=== PATIENT | male | born 1945 | race Caucasian/White ===

== ENCOUNTER 2016-08-16 22:58 | Inpatient (IN) | payer MEDICARE ==
[2016-08-16] MEDS ORDERED: HEPARIN SODIUM,PORCINE 5,000 UNIT/ML 1 ML VIAL IV STA (23:10)
[2016-08-16] MEDS ORDERED: DILTIAZEM 125 MG in SODIUM CHLORIDE 0.9% 100 ML IV ONE (23:10)
[2016-08-16] MEDS ORDERED: HEPARIN SODIUM,PORCINE/D5W PMX 25,000 UNIT in DEXTROSE/WATER 1 500ML.BAG IV STA (23:10)
--- NOTE | 2016-08-16 23:13 | ED ---
Chest Pain HPI - General Chief Complaint: Chest Pain Stated Complaint: chest pains Time Seen by Provider: 08/16/16 23:05 Source: patient, EMS Mode of arrival: EMS - History of Present Illness Initial Comments: This is a 71-year-old male with a history of hypertension presents emergency department for an episode of lightheadedness chest pain. He states that around 9:30 PM he was sitting in his chair when all of a sudden he got very lightheaded and had some chest pressure associated with some diaphoresis. He states that he was very concerned and his called 911 who advised him to take an aspirin. This completely resolved his symptoms. When EMS arrived they noted that the patient was in atrial fibrillation with RVR. The patient does not history of this. Patient does not have a history of SD in the past. No recent travel. No shortness of breath. He states that right now he feels completely back to normal. - Related Data Allergies Allergy/AdvReac Type Severity Reaction Status Date / Time No Known Allergies Allergy Verified 08/16/16 23:02 Review of Systems ROS Statement: Those systems with pertinent positive or pertinent negative responses have been documented in the HPI. ROS Other: All systems not noted in ROS Statement are negative. EKG Findings - EKG Comments: EKG Findings:: EKG showing atrial fibrillation with a rate of 110. There are ST segment depressions in the lateral and inferior leads with T-wave inversion. The patient has what appears to be an incomplete right bundle-branch block as well. QTC is 357. Other intervals are normal. No ectopy. Past Medical History Past Medical History: Hypertension History of Any Multi-Drug Resistant Organisms: None Reported Additional Past Surgical History / Comment(s): knee and hip surgery Past Psychological History: No Psychological Hx Reported Smoking Status: Never smoker Past Alcohol Use History: Rare Past Drug Use History: None Reported General Exam - General Exam Comments Initial Comments: Constitutional: Awake alert Appears comfortable Head: Normocephalic atraumatic Eyes: no conjunctival injection No scleral icterus EOMI Neck: No JVD Supple Heart: Tachycardic with an irregularly irregular rhythm normal S1-S2 no murmurs Lungs: Clear to auscultation bilaterally No wheezing No rales Abdomen: Soft nondistended nontender Extremities: Non edematous DP pulses intact Radial pulses intact Neuro: A&Ox3 No focal neurologic deficits Psych: Appropriate mood and affect Course Vital Signs 08/16/16 08/17/16 22:59 00:03 Temperature 98.0 F Pulse Rate 90 112 H Respiratory 18 18 Rate Blood Pressure 156/78 116/68 O2 Sat by Pulse 96 98 Oximetry Chest Pain MDM - MDM This is a 71-year-old male who presents emergency department for chest pain and new onset A. fib. The patient had an elevated troponin of 0.10. He did have some ST depressions eyes EKG as well. With his symptoms of concern for an STEMI. His family brought in on heparin and Cardizem. Heart rate is in the 80s to 90s currently. He has no chest pain. Patient will be admitted to Dr. Kennedy. Dr. Chin was placed on consult. Disposition Clinical Impression: NSTEMI (non-ST elevated myocardial infarction), Atrial fibrillation with RVR Disposition: ADMITTED IP TO THIS HOSP Condition: Stable
[2016-08-16 23:30] LABS: Basophils % (A) 0 %; CHCM 34.1; Eosinophils # (A) 0.2 k/uL (0-0.7); Eosinophils % (A) 2 %; HCT 44.8 % (39.0-53.0); HDW 3.36; HGB 14.7 gm/dL (13.0-17.5); Luc # (Auto) 0.19; Luc % (Auto) 2; Lymphocytes # (A) 1.7 k/uL (1.0-4.8); Lymphocytes % (A) 17 %; MCHC 32.8 g/dL (31.0-37.0); MCV 85.3 fL (80.0-100.0); Mean Platelet Volume 6.5; Monocytes # (A) 0.5 k/uL (0-1.0); Monocytes % (A) 5 %; Neutrophils # (A) 7.1 k/uL (1.3-7.7); Neutrophils % (A) 73 %; RBC 5.25 m/uL (4.30-5.90); RDW 14.7 % (11.5-15.5); WBC 9.7 k/uL (3.8-10.6); WBC (Perox) 9.55
[2016-08-16 23:39] LABS: ALT 45 U/L (21-72); AST 63 U/L (17-59); Alkaline Phosphatase 82 U/L (38-126); Anion Gap 16 mmol/L; Blood Urea Nitrogen 21 mg/dL (9-20); Calcium 10.1 mg/dL (8.4-10.2); Carbon Dioxide 23 mmol/L (22-30); Chloride 105 mmol/L (98-107); Glucose 132 mg/dL (74-99); Magnesium 1.8 mg/dL (1.6-2.3); Non-African American GFR(MDRD) >60 (>60 ml/min/1.73 sqM); Sodium 144 mmol/L (137-145); Total Bilirubin 0.5 mg/dL (0.2-1.3); Total Protein 7.9 g/dL (6.3-8.2)
[2016-08-16 23:40] LABS: Partial Thromboplastin Time 23.9 sec (22.0-30.0); Prothrombin Time 10.3 sec (9.0-12.0)
[2016-08-17 00:06] LABS: Creatine Kinase MB 1.4 ng/mL (0.0-2.4); Troponin I 0.108 ng/mL (0.000-0.034)
[2016-08-17] MEDS ORDERED: NITROGLYCERIN SL TABS 0.4 MG TAB SUBLINGUAL PRN ×2 (00:16→08:18)
--- NOTE | 2016-08-17 00:38 | XR ---
EXAM: XR Chest, 2 Views. CLINICAL HISTORY: Reason: Chest Pain TECHNIQUE: Frontal and lateral views of the chest. COMPARISON: None available FINDINGS: Lungs: Lungs are clear. Pleural space: No evidence of pleural effusion. No pneumothorax. Heart: Heart size is mildly enlarged. The pulmonary vasculature is within normal limits. Mediastinum: Rightward deviation of the upper trachea may be related to vascular tortuosity, but cannot exclude mediastinal or thyroid mass. Bones/joints: Unremarkable. IMPRESSION: Mild cardiomegaly. No mammographic evidence of acute cardiopulmonary disease. Rightward deviation of upper trachea as discussed in body of report. CT chest would be useful for further evaluation.
[2016-08-17 01:26] VITALS: BMI 47.9
[2016-08-17] MEDS ORDERED: HEPARIN SODIUM,PORCINE/D5W PMX 25,000 UNIT in DEXTROSE/WATER 1 500ML.BAG IV SCH (04:00)
[2016-08-17 06:37] LABS: Creatine Kinase MB 5.5 ng/mL (0.0-2.4); Troponin I 1.68 ng/mL (0.000-0.034)
[2016-08-17] MEDS ORDERED: HEPARIN SODIUM,PORCINE 5,000 UNIT/ML 1 ML VIAL IV PRN (07:47)
[2016-08-17 08:03] LABS: Basophils # (A) 0.1 k/uL (0-0.2); Basophils % (A) 1 %; CH 28.6; CHCM 33.4; Eosinophils # (A) 0.2 k/uL (0-0.7); Eosinophils % (A) 2 %; HCT 42.6 % (39.0-53.0); HGB 14.5 gm/dL (13.0-17.5); Luc # (Auto) 0.38; Luc % (Auto) 4; Lymphocytes # (A) 3.3 k/uL (1.0-4.8); Lymphocytes % (A) 34 %; MCH 29.3 pg (25.0-35.0); MCV 86.3 fL (80.0-100.0); Mean Platelet Volume 8.3; Monocytes # (A) 0.6 k/uL (0-1.0); Monocytes % (A) 6 %; Neutrophils % (A) 53 %; RBC 4.94 m/uL (4.30-5.90); RDW 14.9 % (11.5-15.5); WBC 9.4 k/uL (3.8-10.6); WBC (Perox) 9.27
[2016-08-17] MEDS ORDERED: ASPIRIN 325 MG TAB PO STA (08:18)
[2016-08-17] MEDS ORDERED: ALPRAZolam 0.25 MG TAB PO PRN (08:18)
[2016-08-17] MEDS ORDERED: SODIUM CHLORIDE 0.9% 1,000 ML in EMPTY BAG 1 BAG IV ONE (08:18)
[2016-08-17] MEDS ORDERED: ATORVASTATIN 80 MG TAB PO STA (08:18)
[2016-08-17] MEDS ORDERED: ALPRAZolam 0.5 MG TAB PO PRN (08:18)
--- NOTE | 2016-08-17 08:19 | P.CRDCN ---
History of Present Illness Consult date: 08/17/16 Requesting physician: Domenico Kennedy Consult reason: chest pain, atrial fibrillation Chief complaint: Chest pain and diaphoresis History of present illness: This is a pleasant 71-year-old gentleman with history of hypertension , hyperlipidemia, arthritis, nonsmoker, no EtOH, nondiabetic, who presented to the hospital with symptoms of chest discomfort and diaphoresis. According to the patient, he had came home from a meeting last evening, he went to sit down in the living room, prior to sitting down became extremely dizzy and diaphoretic , he did not pass out but states that he fell into the chair. Immediately thereafter patient developed a heaviness in the center of his chest. He denies any recent palpitations or chest discomfort. He does state that he's been dealing with a cough for the past one to one and a half weeks. According to the patient, he states that he had a heart catheterization several years ago, from what he recalls he did not have any significant blockage at that time. EKG on admission here showed atrial fibrillation with a rapid ventricular response, patient is currently in normal sinus rhythm this morning. Chest x- ray on admission here revealed mild cardiomegaly. Rightward deviation of the upper trachea. Blood pressure on arrival here 156/78 with heart rate of 112. CBC normal, potassium 4.0, BUN 21, creatinine 0.7. Initial troponin 0.10, subsequent troponin 1.6. BNP level 50. At the time of my examination this morning, patient is currently chest pain-free, in normal sinus rhythm with occasional PVC. He was initiated on IV heparin and IV Cardizem in the emergency room. He is also on an aspirin. His home medications include Lipitor 20 mg daily, meloxicam 7.5 mg twice a day, felodipine ER 5 mg daily, enalapril 5 mg daily, torsemide 20 mg alternating with 40 mg every other day. Klor-Con 10 mg daily. Patient also takes an aspirin a day. Past Medical History Past Medical History: Hyperlipidemia, Hypertension, Osteoarthritis (OA) History of Any Multi-Drug Resistant Organisms: None Reported Past Surgical History: Appendectomy, Heart Catheterization, Orthopedic Surgery Additional Past Surgical History / Comment(s): right knee replacement x2, left knee replacement, right hip replacement, colonoscopy with positive CA polyp and removal of 6 inches of colon, follw-up colonoscopies have been good Past Anesthesia/Blood Transfusion Reactions: Previous Problems w/ Anesthesia Additional Past Anesthesia/Blood Transfusion Reaction / Comment(s): increased blood pressure and anxiety Past Psychological History: No Psychological Hx Reported Smoking Status: Former smoker Past Alcohol Use History: Rare Past Drug Use History: None Reported - Past Family History Father Family Medical History: Cancer, Diabetes Mellitus Additional Family Medical History / Comment(s): melanoma Mother Family Medical History: Coronary Artery Disease (CAD), CVA/TIA, Diabetes Mellitus Medications and Allergies Allergies Allergy/AdvReac Type Severity Reaction Status Date / Time No Known Allergies Allergy Verified 08/16/16 23:02 Physical Exam Vitals: Vital Signs Temp Pulse Pulse Resp BP BP Pulse Ox 08/17/16 04:00 98.0 F 75 20 168/81 96 08/17/16 00:30 98.0 F 88 20 130/72 96 08/17/16 00:26 98.1 F 65 18 118/77 96 Intake and Output 08/16/16 08/17/16 08/17/16 22:59 06:59 14:59 Intake Total 1.333 Output Total 200 Balance -198.667 Intake: Intake, IV Titration 1.333 Amount Heparin Sodium,Porcine/ 1.333 D5w Pmx 25,000 unit In Dextrose/Water 1 500ml. bag @ 6.8 UNITS/KG/HR 20 mls/hr IV .Q24H HERNAN Rx#: [id number] Output: Urine 200 Other: # Voids 1 Weight 146.8 kg PHYSICAL EXAMINATION: HEENT: Head is atraumatic, normocephalic. Pupils equal, round. Neck is supple. There is no elevated jugular venous pressure. HEART EXAMINATION: Heart S1, S2 normal. No murmur or gallop heard. CHEST EXAMINATION: Lungs are clear to auscultation and precussion. No chest wall tenderness is noted on palpation or with deep breathing. ABDOMEN: Soft, obese, nontender. Bowel sounds are heard. No organomegaly noted. EXTREMITIES: 2+ peripheral pulses with trace to 1+ evidence of peripheral edema and no calf tenderness noted. NEUROLOGIC patient is awake, alert and oriented -3. . Results 08/17/16 05:47 08/16/16 23:15 Cardiac Enzymes 08/17/16 Range/Units 05:23 CK-MB (CK-2) 5.5 H* (0.0-2.4) ng/mL Troponin I 1.680 H* (0.000-0.034) ng/mL Coagulation 08/17/16 Range/Units 05:23 APTT 31.4 H (22.0-30.0) sec CBC 08/17/16 Range/Units 05:47 WBC 9.4 (3.8-10.6) k/uL RBC 4.94 (4.30-5.90) m/uL Hgb 14.5 (13.0-17.5) gm/dL Hct 42.6 (39.0-53.0) % Plt Count 224 (150-450) k/uL Current Medications Generic Name Dose Route Start Last Admin Trade Name Freq PRN Reason Stop Dose Admin Aspirin 325 mg 08/18/16 09:00 Aspirin PO DAILY [facility] Heparin Sodium (Porcine) 0 unit 08/17/16 07:47 Heparin IV PER PROTOCOL PRN Low PTT Protocol Diltiazem HCl 125 mg/ Sodium 125 mls @ 5 mls/hr 08/16/16 23:10 08/16/16 23:59 Chloride IV 08/17/16 23:09 5 mg/hr .Q24H ONE 5 mls/hr Protocol Administration 5 MG/HR Heparin Sodium/Dextrose 25,000 500 mls @ 20 mls/hr 08/17/16 04:00 08/17/16 06 :25 unit/ IV Solution IV 9.8 units/kg/hr .Q24H HERNAN 28.83 mls/hr Protocol Titration 6.8 UNITS/KG/HR Nitroglycerin 0.4 mg 08/17/16 00:16 Nitrostat SUBLINGUAL Q5M PRN Chest Pain Intake and Output 08/16/16 08/17/16 08/17/16 22:59 06:59 14:59 Intake Total 1.333 Output Total 200 Balance -198.667 Intake: Intake, IV Titration 1.333 Amount Heparin Sodium,Porcine/ 1.333 D5w Pmx 25,000 unit In Dextrose/Water 1 500ml. bag @ 6.8 UNITS/KG/HR 20 mls/hr IV .Q24H HERNAN Rx#: [id number] Output: Urine 200 Other: # Voids 1 Weight 146.8 kg 08/17/16 05:47 EKG Interpretations (text) Initial EKG showed atrial fibrillation with a rapid ventricular response, and nonspecific ST-T wave changes. EKG performed this morning shows normal sinus rhythm with occasional PVC. Assessment and Plan Plan: Assessment and plan #1 chest pressure and heaviness associated with diaphoresis, abnormal troponins suggestive of non-Q-wave myocardial infarction. #2 atrial fibrillation, new onset, paroxysmal, currently in normal sinus rhythm. #3 hypertension #4 hyperlipidemia #5 arthritis Plan We will request an echocardiogram with Doppler study. Continue IV heparin. Continue aspirin. We will resume the patient's Lipitor, discontinue IV Cardizem and initiate beta taty. Patient was advised to undergo cardiac catheterization, the risks and benefits were explained to him in detail, this will be performed today by Dr. Chin. Recommendations to follow. DNP note has been reviewed, I agree with a documented findings and plan of care. Patient was seen and examined.
--- NOTE | 2016-08-17 08:23 | P.PN ---
Progress Note - Text This is an addendum to the dictated cardiology consultation. The patient presents with symptoms of dizziness, presyncope, dyspnea and chest discomfort. He was noted to be in atrial fibrillation and subsequently converted to sinus mechanism. 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 His systolic function was normal at that time. He is pain-free at this time. He is not very active physically because of her arthritic pain. He has no prior history of atrial fibrillation, CHF, PND or orthopnea. His physical examination shows no lung congestion and he is in sinus mechanism. His lab data are consistent with non-STEMI. I have recommended to repeat the cardiac catheterization, the risk as well as the complication were discussed with the patient was informed standing and agreement. Thank you for this consult we will follow with you.
[2016-08-17] MEDS: METOPROLOL TARTRATE 25 MG TAB PO SCH ×2 (09:21→22:34)
[2016-08-17] MEDS: LISINOPRIL 5 MG TAB PO SCH ×2 (09:22→22:34)
[2016-08-17 09:51] VITALS: RESP 18
[2016-08-17] MEDS ORDERED: diphenhydrAMINE 50 MG/ML 1 ML VIAL ONE (10:47)
[2016-08-17] MEDS ORDERED: SODIUM CHLORIDE 0.9% (PF) 10 ML VIAL ONE (10:48)
[2016-08-17] MEDS ORDERED: fentaNYL (PF) 50 MCG/ML 2 ML AMP ONE (10:48)
[2016-08-17] MEDS ORDERED: HEPARIN SODIUM 1,000 UNIT/ML VIAL ONE (10:48)
[2016-08-17] MEDS ORDERED: VERAPAMIL 2.5 MG/ML 2 ML AMP ONE (10:48)
[2016-08-17] MEDS ORDERED: LIDOCAINE 2% INJ 20 MG/ML (20 ML MDV) ONE (10:52)
[2016-08-17] MEDS ORDERED: diphenhydrAMINE 50 MG/ML 1 ML VIAL IVP ONE (10:56)
[2016-08-17] MEDS ORDERED: fentaNYL (PF) 50 MCG/ML 2 ML AMP IV ONE (10:56)
[2016-08-17] MEDS ORDERED: LIDOCAINE 2% INJ 20 MG/ML SQ ONE (11:01)
[2016-08-17] MEDS ORDERED: VERAPAMIL SYRINGE (5 MG/10 ML) INTRAARTER ONE (11:01)
[2016-08-17] MEDS ORDERED: HEPARIN SODIUM 1,000 UNIT/ML VIAL IV ONE (11:15)
[2016-08-17] MEDS ORDERED: SODIUM CHLORIDE 0.9% 500 ML IV ONE (11:19)
[2016-08-17] MEDS ORDERED: IOHEXOL 350 MG/ML 100 ML BOTTLE INJ ONE (11:20)
[2016-08-17] MEDS ORDERED: RX INFO: IV CONTRAST WAS GIVEN 1 EACH MISC MISCELLANE PRN (11:31)
[2016-08-17] MEDS ORDERED: SODIUM CHLORIDE 0.9% 1,000 ML IV SCH (11:45)
--- NOTE | 2016-08-17 11:46 | ECHOF ---
Referral Reason:nstemi MEASUREMENTS -------- HEIGHT: 175.3 cm WEIGHT: 146.5 kg BP: 168/81 RVIDd: 3.4 cm (< 3.3) IVSd: 1.4 cm (0.6 - 1.1) LVIDd: 4.9 cm (3.9 - 5.3) LVPWd: 1.3 cm (0.6 - 1.1) IVSs: 2.2 cm LVIDs: 3.3 cm LVPWs: 1.8 cm LA Diam: 3.5 cm (2.7 - 3.8) IVSd: 4.2 cm (0.6 - 1.1) Ao Diam: 3.7 cm (2.0 - 3.7) AV Cusp: 2.3 cm (1.5 - 2.6) LA Diam: 3.4 cm (2.7 - 3.8) MV EXCURSION: 13.666 mm (> 18.000) MV EF SLOPE: 61 mm/s (70 - 150) EPSS: 1.7 cm MV E Jose Miguel: 0.89 m/s MV DecT: 249 ms MV A Jose Miguel: 0.83 m/s MV E/A Ratio: 1.07 FINDINGS -------- Sinus rhythm. This was a technically adequate study. There is moderate concentric left ventricular hypertrophy. Overall left ventricular systolic function is normal with, an EF between 55 - 60 %. The right ventricle is mildly enlarged. The left atrial size is normal. The right atrium is normal in size. 1.5mg of Definity was utilized for enhancement of images The aortic valve is trileaflet and appears structurally normal. Mild mitral annular calcification present. Trace tricuspid regurgitation present. The pulmonic valve was not well visualized. The aortic root size is normal. Normal inferior vena cava with normal inspiratory collapse consistent with estimated right atrial pressure of 5 mmHg. There is no pericardial effusion. CONCLUSIONS -------- 1. Sinus rhythm. 2. Mild mitral annular calcification present. 3. Trace tricuspid regurgitation present. 4. The pulmonic valve was not well visualized. 5. The aortic root size is normal. 6. Normal inferior vena cava with normal inspiratory collapse consistent with estimated right atrial pressure of 5 mmHg. 7. There is no pericardial effusion. 8. This was a technically adequate study. 9. There is moderate concentric left ventricular hypertrophy. 10. Overall left ventricular systolic function is normal with, an EF between 55 - 60 %. 11. The right ventricle is mildly enlarged. 12. The left atrial size is normal. 13. The right atrium is normal in size. 14. 1.5mg of Definity was utilized for enhancement of images 15. The aortic valve is trileaflet and appears structurally normal. ORACLE DBA: Dorcsa Bah RDCS
--- NOTE | 2016-08-17 12:47 | US ---
EXAMINATION TYPE: US venous doppler duplex LE BI DATE OF EXAM: 08/17/2016 11:27 AM COMPARISON: on PACS CLINICAL HISTORY: r/o dvt. chest pain. No leg pain or swelling. On blood thinners now. SIDE PERFORMED: bilateral VESSELS IMAGED: External Iliac Vein (EIV) Common Femoral Vein Deep Femoral Vein Greater Saphenous Vein * Femoral Vein Popliteal Vein Small Saphenous Vein * Proximal Calf Veins (* superficial vessels) IMPRESSION: Right Leg: Appears negative for DVT Left Leg: Appears negative for DVT
[2016-08-17 12:56] LABS: Creatine Kinase MB 6.6 ng/mL (0.0-2.4); Troponin I 1.06 ng/mL (0.000-0.034)
[2016-08-17] MEDS ORDERED: RIVAROXABAN 10 MG TAB PO SCH (17:30)
--- NOTE | 2016-08-17 18:49 | HP ---
DATE OF ADMISSION: 08/17/2016 PRESENTING COMPLAINT: Dizzy. HISTORY OF PRESENTING COMPLAINT: This is a very pleasant 71-year-old patient of Dr. Almanza whose chronic stable medical conditions include hypertension, hyperlipidemia, osteoarthritis. The patient came home from eating, was at home, suddenly was extremely dizzy to the patient the patient fell down, started perspiring, developed chest pressure and patient was brought in for the same. Patient's troponin ( ) started to go up and went from 0.12 to 1.6. The patient ruled in for an acute OH. Patient was found to be in atrial fibrillation. Patient was taken for a cardiac cath. I do not know the formal results, but there was no significant blockage. Patient's chest pressure was across the chest. It came on its own, did go down on its own, did not radiate. Associated with dizziness. REVIEW OF SYSTEMS: CONSTITUTIONAL: Tired. HEENT: None. RESPIRATORY: None. CARDIOVASCULAR: As above. GASTROINTESTINAL: None. GENITOURINARY: None. MUSCULOSKELETAL: Arthritic pain in the joints. DERMATOLOGICAL: None. HEMATOLOGICAL: None. LYMPHATIC: None. PSYCHIATRY: None. NEUROLOGICAL: None. PAST MEDICAL HISTORY: Hyperlipidemia, hypertension, osteoarthritis. PAST SURGICAL HISTORY: Cardiac cath, appendectomy, right knee replacement x2, left knee replacement, right hip replacement, also has cancerous polyp, 6 inches of colon was removed and repeat colonoscopy has been negative. 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 Did smoke for about 10 years over 30 years ago, . Family history of cancer, diabetes mellitus type 2. HOME MEDICATIONS: 1. Meloxicam 7.5 mg p.o. b.i.d. 2. Bentyl ER 5 mg p.o. daily. 3. Enalapril 5 mg p.o. daily. 4. Lipitor 20 mg daily. 5. Torsemide 40 mg Saturday, Saturday and Saturday and 20 mg once Saturday, Saturday, , Saturday. 6. Latanoprost 1 drop to both eyes at bedtime. 7. Potassium 10 mEq. ALLERGIES: None. On examination, vital signs on presentation: Temperature 98, pulse 90, respirations 18, blood pressure 156/78, pulse ox 96% on 2L. GENERAL APPEARANCE: Morbidly obese ( ) lying in bed. EYES: Pupils equal. Conjunctivae normal. HEENT: Oral cavity normal. NECK: JVD not raised. Mass not palpable. RESPIRATORY: Effort normal. LUNGS: Distant breath sounds. CARDIOVASCULAR: Heart and muffled. No edema. ABDOMEN: Soft, nontender. Liver and spleen not palpable. LYMPHATIC: No lymph node palpable in neck or axillae. PSYCHIATRY: Alert and oriented x3. Mood and affect normal. NEUROLOGICAL: Pupils equal. Cranial nerves grossly intact. Power and sensation grossly intact. INVESTIGATIONS: White count 9.7, hemoglobin 14.7. Potassium 4.4. Troponin 0.1, 1.6, 1.0. EKG shows atrial fibrillation. Two-D echo shows EF of 55% to 60%. ASSESSMENT: 1. Acute non-ST elevation myocardial infarction associated with atrial fibrillation. 2. New diagnosis of atrial fibrillation, rate controlled. 3. Morbid obesity, body mass index of 47.8. 4. Essential hypertension. 5. Hyperlipidemia. PLAN: Patient was put on aspirin, beta taty, Xarelto. Care was discussed with the patient and . Patient will see a dietitian for weight loss measures. Patient seen by cardiology by Dr. Chin.
--- NOTE | 2016-08-17 20:40 | CC ---
DATE OF SERVICE: Mr. Izaguirre is a 71 -year-old male with known history of hypertension, hyperlipidemia, who presented with symptoms of palpitation and chest discomfort. He was in atrial fibrillation and converted back to sinus mechanism. He had enzymatic changes consistent with non-ST segment elevation myocardial infarction. In view of that, recommendation was made regarding cardiac catheterization. The procedure as well as risks and complications were discussed with the patient who is in full understanding and agreement. PROCEDURE: Patient was brought to the laboratory director in fasting semisedated state after receiving fentanyl and Benadryl. He was draped and prepped in conventional fashion using Xylocaine anesthesia and Seldinger technique, a 6 Faroese sheath was introduced in the right radial artery. Selective right and left coronary artery was performed using 5 Faroese 4 bend right and left Natalie catheter. Multiple view of the coronary artery including hemiaxial views were obtained. Following that, a 5 Faroese tight pigtail catheter was introduced into the left ventricle and a 30 degrees HENRIQUEZ view of the left ventricle was obtained. Following that, catheter and sheath were removed. Hemostasis was obtained with deployment of a TR band. There were complications. Patient is returned to his room in stable condition. There were no immediate complications. The patient received 5000 units of intravenous heparin as well as intra-arterial verapamil. FINDINGS: LEFT MAIN: This is a large-size vessel, bifurcating into the left circumflex, left anterior descending artery is without any obstructive disease. LEFT ANTERIOR DESCENDING CORONARY ARTERY: This is a large-size vessel reaching toward the apex with a wrap around the apex segment, giving rise to a moderately sized diagonal branch in mid segment. The left anterior descending artery has no evidence of high-grade stenosis. LEFT CIRCUMFLEX: This is a nondominant vessel, giving rise to a very proximal large obtuse marginal branch. The second obtuse marginal branch is small in caliber. The left circumflex as well as its branches have no evidence of obstructive coronary artery disease. RIGHT CORONARY ARTERY: This is a large dominant vessel bifurcating distally into PDA and posterolateral segment and branches. The right coronary artery in the mid segment has a 20% to 30% plaque. The rest of the vessel has no high-grade stenosis. Left ventriculogram: Left ventriculogram was performed in 30 degree HENRIQUEZ view and revealed a normal left ventricle size and systolic function. Ejection fraction 60%. There was no significant mitral regurgitation. HEMODYNAMICS: There was no gradient across the aortic valve. The left ventricular end-diastolic was 16 mmHg. CONCLUSION: 1. 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 2. Normal left ventricular size systolic function. RECOMMENDATION: Those images are very similar to what was found in 2011. In view of that, I would recommend to continue medical therapy with the addition of anticoagulation and he will be evaluated for possible pulmonary embolism as etiology of his presentation. Those findings and recommendations were discussed with the patient and his family who are in full understanding and agreement.
--- NOTE | 2016-08-17 20:43 | LTR ---
August 17, 2016 RE: Dagoberto Izaguirre Dear Dr. Almanza: I had the pleasure of performing cardiac catheterization on Mr. Izaguirre at [facility] on the august and a full copy of procedure note will be forwarded to you. In brief, he was found to have mild intimal disease involving the mid right coronary artery with no progression of disease compared with the images obtained in 2010. Based on that, I will continue medical therapy and he will undergo further testing to see if there is any evidence to suggest pulmonary embolism. I will keep you updated on his progress. Thank you again for allowing me to participate in his care. Please feel free to call for any questions. Sincerely, CORDELIA IRBY MD
[2016-08-18 06:31] LABS: Anion Gap 11 mmol/L; Blood Urea Nitrogen 14 mg/dL (9-20); Calcium 9.1 mg/dL (8.4-10.2); Carbon Dioxide 21 mmol/L (22-30); Chloride 109 mmol/L (98-107); Cholesterol 132 mg/dL (<200); Glucose 84 mg/dL (74-99); HDL Cholesterol 52 mg/dL (40-60); Non-African American GFR(MDRD) >60 (>60 ml/min/1.73 sqM); Potassium 4.6 mmol/L (3.5-5.1); Sodium 141 mmol/L (137-145); Triglycerides 279 mg/dL (<150)
[2016-08-18] MEDS ORDERED: ASPIRIN 81 MG CHEW PO SCH (09:00)
[2016-08-18] MEDS ORDERED: ATORVASTATIN 40 MG TAB PO SCH (09:00)
[2016-08-18] MEDS ORDERED: ASPIRIN 325 MG TAB PO SCH (09:00)
[2016-08-18] MEDS: METOPROLOL TARTRATE 25 MG TAB PO SCH (09:27)
[2016-08-18] MEDS: LISINOPRIL 5 MG TAB PO SCH (09:27)
[2016-08-18 11:38] VITALS: TEMP 97.1
[2016-08-18 12:39] VITALS: BP 138/89; PULSE 55
--- NOTE | 2016-08-18 13:16 | P.PN ---
Subjective This is a pleasant 71-year-old gentleman with history of hypertension , hyperlipidemia, arthritis, nonsmoker, no EtOH, nondiabetic, who presented to the hospital with symptoms of chest discomfort and diaphoresis. EKG on admission showed atrial fibrillation with a rapid ventricular response, patient continues to be in normal sinus rhythm at this time. He underwent a cardiac catheterization yesterday which do not reveal any significant obstructive coronary artery disease. patient was seen and examined this morning, feels well, denies any palpitations, no dizziness or lightheadedness. He is currently on Xarelto for anticoagulation, as well as beta taty. heart rate in the 50s, up into the 70s with ambulation. From cardiology's perspective, he may be able to be discharged home today. We'll make him a follow-up appointment with Dr. Chin in the office post discharge. Objective - Vital Signs Vital signs: Vital Signs Temp 97.1 F L 08/18/16 12:00 Pulse 55 L 08/18/16 12:00 Resp 18 08/18/16 12:00 BP 138/89 08/18/16 12:00 Pulse Ox 98 08/18/16 12:00 Intake & Output 08/17/16 08/18/16 08/18/16 18:59 06:59 18:59 Intake Total 478.53 1960 880 Balance 478.53 1960 880 Weight 147 kg Intake: IV 50 Intake, IV Titration 48.53 1000 Amount Heparin Sodium,Porcine/ 48.53 D5w Pmx 25,000 unit In Dextrose/Water 1 500ml. bag @ 6.8 UNITS/KG/HR 20 mls/hr IV .Q24H HERNAN Rx#: [id number] Sodium Chloride 0.9% 1, 1000 000 ml @ 100 mls/hr IV . Q10H HERNAN Rx#:[id number] Oral [phone] Other: # Voids 1 2 # Bowel Movements 1 - Exam PHYSICAL EXAMINATION: HEENT: Head is atraumatic, normocephalic. Pupils equal, round. Neck is supple. There is no elevated jugular venous pressure. HEART EXAMINATION: Heart S1, S2 normal. No murmur or gallop heard. CHEST EXAMINATION: Lungs are clear to auscultation and precussion. No chest wall tenderness is noted on palpation or with deep breathing. ABDOMEN: Soft, obese, nontender. Bowel sounds are heard. No organomegaly noted. EXTREMITIES: 2+ peripheral pulses with no evidence of peripheral edema and no calf tenderness noted. Right radial site clean and dry, good distal pulse. NEUROLOGIC patient is awake, alert and oriented -3. . - Labs CBC & Chem 7: 08/17/16 05:47 08/18/16 05:55 Labs: Abnormal Lab Results - Last 24 Hours (Table) 08/18/16 Range/Units 05:55 Chloride 109 H (98-107) mmol/L Carbon Dioxide 21 L (22-30) mmol/L Creatinine 0.50 L (0.66-1.25) mg/dL Triglycerides 279 H (<150) mg/dL Assessment and Plan Plan: Assessment and plan #1 chest pressure and heaviness associated with diaphoresis, cardiac cath did not reveal any significant obstructive coronary artery disease. #2 atrial fibrillation, new onset, paroxysmal, currently in normal sinus rhythm. #3 hypertension #4 hyperlipidemia #5 arthritis Plan Echocardiogram with Doppler study revealed normal left ventricular systolic function. G's perspective, patient should be able to be discharged home today. We'll make him a follow-up appointment to see Dr. Chin in the office in one week. We'll continue the patient on current dose of beta taty, 25 mg one tablet by mouth twice a day along with lisinopril 5 mg twice a day, Lipitor 40 mg daily, Xarelto 20 mg daily. DNP note has been reviewed, I agree with a documented findings and plan of care. Patient was seen and examined.
--- NOTE | 2016-08-18 18:35 | P.DS ---
Providers Date of admission: 08/17/16 00:20 Expected date of discharge: 08/18/16 Attending physician: Domenico Kennedy Primary care physician: [place] Hospital Course: This is a pleasant 71-year-old gentleman with history of hypertension , hyperlipidemia, arthritis, nonsmoker, no EtOH, nondiabetic, who presented to the hospital with symptoms of chest discomfort and diaphoresis. EKG on admission showed atrial fibrillation with a rapid ventricular response, patient continues to be in normal sinus rhythm at this time. He underwent a cardiac catheterization yesterday which do not reveal any significant obstructive coronary artery disease. patient was seen and examined this morning, feels well, denies any palpitations, no dizziness or lightheadedness. He is currently on Xarelto for anticoagulation, as well as beta taty. heart rate in the 50s, up into the 70s with ambulation. Discharge diagnoses #1 new onset atrial fibrillation currently maintained on anticoagulation #2 history of hypertension for a #3 morbid obesity #4 clinical obstructive sleep apnea #5 dyslipidemia Physical exam Gen. appearance oriented 3 in no distress Neck is supple no JVD Lungs good air entry clear to auscultation no rhonchi or wheezing Heart S1-S2 heard regular rate and rhythm no murmurs appreciated Abdomen is soft nontender no organomegaly bowel sounds are intact Neurologically cranial nerves II-12 grossly intact no focal motor or sensory deficits noted Skin no abnormalities appreciated Patient underwent a cardiac catheterization which was negative. Patient is to follow-up with the his primary care physician and Dr. Chin. Patient is recommended regarding the risks and benefits of anticoagulation. Patient is discharged in a stable condition. Patient Condition at Discharge: Stable Plan - Discharge Summary New Discharge Prescriptions: Atorvastatin [Lipitor] 40 mg PO DAILY #30 tab Lisinopril [Zestril] 5 mg PO BID #60 tab Metoprolol Tartrate [Lopressor] 25 mg PO BID #60 tab Rivaroxaban [Xarelto] 20 mg PO AC-SUPPER #30 tab Discharge Medication List Latanoprost [Latanoprost] 1 drop BOTH EYES HS 08/17/16 [History] Meloxicam [Meloxicam] 7.5 mg PO BID 08/17/16 [History] Potassium Chloride [Klor-Con 10] 10 meq PO DAILY 08/17/16 [History] Torsemide [Torsemide] 20 mg PO SUTUTHSA 08/17/16 [History] Torsemide [Torsemide] 40 mg PO MOWEFR 08/17/16 [History] Atorvastatin [Lipitor] 40 mg PO DAILY #30 tab 08/18/16 [Rx] Lisinopril [Zestril] 5 mg PO BID #60 tab 08/18/16 [Rx] Metoprolol Tartrate [Lopressor] 25 mg PO BID #60 tab 08/18/16 [Rx] Rivaroxaban [Xarelto] 20 mg PO AC-SUPPER #30 tab 08/18/16 [Rx] Follow up Appointment(s)/Referral(s): Deborah Chin MD [STAFF PHYSICIAN] - 1 Week Jamison Almanza MD [Primary Care Provider] - 1-2 days Discharge Disposition: HOME SELF-CARE
== END 2016-08-18 17:34 | disposition home or self-care (01) | DRG 287 ==
LOC: EC 22:58 → SUPCPDRO 22:58 → 6SEL 08-17 00:20
PROVIDERS: ADMIT Hospitalist; ATTEND Hospitalist
PROC: B2111ZZ Fluoroscopy of Multiple Coronary Arteries using Low Osmolar Contrast (ICD-10-PCS; 2016-08-17)
PROC: B2151ZZ Fluoroscopy of Left Heart using Low Osmolar Contrast (ICD-10-PCS; 2016-08-17)
PROC: 4A023N7 Measurement of Cardiac Sampling and Pressure, Left Heart, Percutaneous Approach (ICD-10-PCS; principal; 2016-08-17 07:30)
DX: I48.0 Paroxysmal atrial fibrillation (principal); Z68.42 Body mass index [BMI] 45.0-49.9, adult; I45.10 Unspecified right bundle-branch block; E66.01 Morbid (severe) obesity due to excess calories; I10 Essential (primary) hypertension; I25.10 Atherosclerotic heart disease of native coronary artery without angina pectoris; I49.3 Ventricular premature depolarization; R74.8 Abnormal levels of other serum enzymes; R07.9 Chest pain, unspecified; R42 Dizziness and giddiness; E78.5 Hyperlipidemia, unspecified; G47.33 Obstructive sleep apnea (adult) (pediatric); M19.90 Unspecified osteoarthritis, unspecified site; R61 Generalized hyperhidrosis; R05 Cough; Z83.3 Family history of diabetes mellitus; Z80.8 Family history of malignant neoplasm of other organs or systems; Z82.49 Family history of ischemic heart disease and other diseases of the circulatory system; Z96.653 Presence of artificial knee joint, bilateral; Z96.641 Presence of right artificial hip joint; Z87.891 Personal history of nicotine dependence; Z79.1 Long term (current) use of non-steroidal anti-inflammatories (NSAID); Z79.899 Other long term (current) drug therapy; Z82.3 Family history of stroke; Z90.49 Acquired absence of other specified parts of digestive tract; Z71.3 Dietary counseling and surveillance; Z86.010 Personal history of colon polyps; Z85.038 Personal history of other malignant neoplasm of large intestine; W18.39XA Other fall on same level, initial encounter; Y92.009 Unspecified place in unspecified non-institutional (private) residence as the place of occurrence of the external cause
CPT/HCPCS: 36415; 71020; 80048; 80053; 80061; 82550; 82553; 83735; 83880; 84484; 85025; 85379; 85610; 85730; 93005; 93306; 93458; 93970; 96365; 96376; 99285

== ENCOUNTER → 2016-10-09 | Outpatient (CLI) | payer MEDICARE ==
--- NOTE | 2016-10-10 09:00 | CONS ---
DATE OF CONSULTATION: A 71-year-old male patient who was recently involved in an acute myocardial infarction and episode of atrial fibrillation. He has some features of obstructive sleep apnea. For that reason, he was referred to me for further evaluation. He goes to bed around midnight, wakes up between 8 to 9 a.m. in the morning. He feels quite tired and sleepy during the day. He has been told to stop breathing and snore by family members. There is a quite high suspicion that he may have an underlying obstructive sleep apnea and for that reason, the patient was referred to me. PAST MEDICAL HISTORY: 1. CAD, [place]. 2. Paroxysmal atrial fibrillation. 3. Hyperlipidemia. 4. Glaucoma. 5. Degenerative arthritis. Surgical history includes appendectomy, left total knee replacement, right total knee replacement, colectomy, cardiac catheterization, right arthroscopic knee surgery, colonoscopy, revision total knee on the right, right total hip replacement. Drug allergies are not known of. Outpatient medication list includes Lipitor 40 q. day, meloxicam 7.5 mg p.o. q. day, torsemide 20 mg p.o. q. day, Xarelto 20 mg q. day, metoprolol 25 mg p.o. q. day, lisinopril 5 mg p.o. ( ), Klor-Con 10 mEq daily and latanoprost eye drops. Family history is noncontributory. Negative for sleep apnea. SOCIAL HISTORY: No history of alcoholism. No history of smoking. No history of substance abuse. REVIEW OF SYSTEMS: Twelve-point review of systems was done. Positive findings were all mentioned above in history of present illness. BP is 126/65, pulse ( ), respiration 12, temperature 97.7, saturation 97% on room air. Weight is 372. Height is 66-1/2 inches. Warwick score of 12. Neck size is 19. BMI is 49.6. GENERAL APPEARANCE: Calm, comfortable. HEENT: Short neck, crowding of the posterior pharynx. There is no goiter or neck masses. LUNGS: Clear to auscultation. HEART: Sounds are regular rate and rhythm. Normal S1, S2. No S3. No S4. No murmurs. ABDOMEN: Soft, nontender. No organomegaly. EXTREMITIES: No edema. No cyanosis or clubbing. IMPRESSION: 1. Obstructive sleep apnea suspected under investigation. 2. Loud snoring. 3. Mild hypersomnia with an Warwick score of 12. 4. Coronary artery disease with previous myocardial infarction. 5. Paroxysmal atrial fibrillation, currently in sinus rhythm. 6. Glaucoma. 7. Hyperlipidemia. 8. Osteoarthritis. PLAN: 1. Encourage weight loss. 2. Implement good sleep hygiene measures. 3. Tight control of cardiovascular risk factors. 4. Proceed with a screening polysomnogram.
== END | disposition home or self-care (01) ==
LOC: SLEEP 13:30
PROVIDERS: ATTEND Internal Medicine Interventional Cardiology
DX: G47.33 Obstructive sleep apnea (adult) (pediatric) (principal); G47.10 Hypersomnia, unspecified; I25.10 Atherosclerotic heart disease of native coronary artery without angina pectoris; I25.2 Old myocardial infarction; I48.0 Paroxysmal atrial fibrillation; E78.5 Hyperlipidemia, unspecified; M19.90 Unspecified osteoarthritis, unspecified site; H26.239 Glaucomatous flecks (subcapsular), unspecified eye; Z79.899 Other long term (current) drug therapy; Z79.01 Long term (current) use of anticoagulants
CPT/HCPCS: 99211

== ENCOUNTER → 2016-10-23 | Outpatient (CLI) | payer MEDICARE ==
[2016-10-23 10:44] LABS: ALT 30 U/L (21-72); AST 37 U/L (17-59); Alkaline Phosphatase 72 U/L (38-126); Anion Gap 14 mmol/L; Blood Urea Nitrogen 17 mg/dL (9-20); Calcium 9.9 mg/dL (8.4-10.2); Carbon Dioxide 24 mmol/L (22-30); Chloride 104 mmol/L (98-107); Cholesterol 144 mg/dL (<200); Glucose 93 mg/dL (74-99); HDL Cholesterol 54 mg/dL (40-60); Non-African American GFR(MDRD) >60 (>60 ml/min/1.73 sqM); Sodium 142 mmol/L (137-145); Total Bilirubin 0.8 mg/dL (0.2-1.3); Total Protein 8.1 g/dL (6.3-8.2); Triglycerides 238 mg/dL (<150)
[2016-10-23 10:56] LABS: Potassium 4.4 mmol/L (3.5-5.1)
== END | disposition home or self-care (01) ==
LOC: LABWHC1 09:35
PROVIDERS: ATTEND Internal Medicine Interventional Cardiology
DX: E78.2 Mixed hyperlipidemia (principal)
CPT/HCPCS: 36415; 80053; 80061

== ENCOUNTER → 2017-10-22 | Outpatient (CLI) | payer MEDICARE ==
[2017-10-22 10:54] LABS: ALT 22 U/L (21-72); AST 29 U/L (17-59); Albumin 4.2 g/dL (3.5-5.0); Alkaline Phosphatase 72 U/L (38-126); Anion Gap 12 mmol/L; Blood Urea Nitrogen 17 mg/dL (9-20); Calcium 9.8 mg/dL (8.4-10.2); Carbon Dioxide 28 mmol/L (22-30); Chloride 102 mmol/L (98-107); Cholesterol 135 mg/dL (<200); Glucose 85 mg/dL (74-99); HDL Cholesterol 49 mg/dL (40-60); LDL Cholesterol,Calculated 34 mg/dL (0-99); Potassium 5.3 mmol/L (3.5-5.1); Sodium 142 mmol/L (137-145); Total Bilirubin 0.4 mg/dL (0.2-1.3); Total Protein 6.8 g/dL (6.3-8.2); Triglycerides 261 mg/dL (<150)
== END | disposition home or self-care (01) ==
LOC: LABWHC1 09:59
PROVIDERS: ATTEND Nurse Practitioner Family
DX: I10 Essential (primary) hypertension (principal); E78.00 Pure hypercholesterolemia, unspecified
CPT/HCPCS: 36415; 80053; 80061

== ENCOUNTER → 2018-03-13 | Outpatient (CLI) | payer MEDICARE ==
[2018-03-13 10:16] LABS: ALT 21 U/L (21-72); AST 30 U/L (17-59); Cholesterol 165 mg/dL (<200); HDL Cholesterol 49 mg/dL (40-60); LDL Cholesterol,Calculated 38 mg/dL (0-99); Triglycerides 391 mg/dL (<150)
== END | disposition home or self-care (01) ==
LOC: LABWHC1 09:15
PROVIDERS: ATTEND Internal Medicine Interventional Cardiology
DX: E78.2 Mixed hyperlipidemia (principal)
CPT/HCPCS: 36415; 80061; 84450; 84460

== ENCOUNTER → 2018-09-04 | Outpatient (CLI) | payer MEDICARE ==
[2018-09-04 17:01] LABS: Albumin 4.5 g/dL (3.80-4.90); Albumin/Globulin Ratio 2.14 (1.60-3.17); Anion Gap 13.5 mmol/L (4.00-12.00); Calcium 9.9 mg/dL (8.7-10.3); Carbon Dioxide 23.5 mmol/L (21.6-31.8); Globulin 2.1 g/dL (1.6-3.3); LDL Cholesterol,Calculated 50.8 mg/dL (0.0-131.0); Potassium 4.4 mmol/L (3.5-5.5); Total Bilirubin 0.4 mg/dL (0.2-1.2); Total Protein 6.6 g/dL (6.2-8.2); VLDL Calculation 55.2 mg/dL (5.00-40.00)
== END | disposition home or self-care (01) ==
LOC: LABWHC1 09:57
PROVIDERS: ATTEND Internal Medicine Interventional Cardiology
DX: E78.2 Mixed hyperlipidemia (principal)
CPT/HCPCS: 36415; 80053; 80061

== ENCOUNTER → 2018-09-19 | Outpatient (CLI) | payer MEDICARE | END | disposition home or self-care (01) | LOC: LABWHC1 11:49 | PROVIDERS: ATTEND Nurse Practitioner Adult Health | DX: I48.0 Paroxysmal atrial fibrillation (principal) | CPT/HCPCS: 36415; 84443 ==

== ENCOUNTER → 2019-03-10 | Outpatient (CLI) | payer MEDICARE ==
[2019-03-10 16:53] LABS: LDL Cholesterol,Calculated 51.8 mg/dL (0.0-131.0); VLDL Calculation 58.2 mg/dL (5.00-40.00)
== END | disposition home or self-care (01) ==
LOC: LABWHC1 09:07
PROVIDERS: ATTEND Nurse Practitioner Adult Health
DX: E78.2 Mixed hyperlipidemia (principal)
CPT/HCPCS: 36415; 80061; 84450; 84460

== ENCOUNTER → 2019-06-15 | Outpatient (CLI) | payer MEDICARE ==
[2019-06-15 10:57] LABS: Basophils % (A) 0 %; Eosinophils # (A) 0.3 k/uL (0-0.7); Eosinophils % (A) 3 %; HCT 42.9 % (39.0-53.0); HGB 14.2 gm/dL (13.0-17.5); Lymphocytes # (A) 3.2 k/uL (1.0-4.8); Lymphocytes % (A) 36 %; MCHC 33.1 g/dL (31.0-37.0); MCV 87.9 fL (80.0-100.0); Mean Platelet Volume 6.8; Monocytes # (A) 0.5 k/uL (0-1.0); Monocytes % (A) 6 %; Neutrophils # (A) 4.5 k/uL (1.3-7.7); Neutrophils % (A) 51 %; Platelet Count 214 k/uL (150-450); RBC 4.88 m/uL (4.30-5.90); RDW 15.1 % (11.5-15.5); WBC 8.8 k/uL (3.8-10.6)
[2019-06-15 16:43] LABS: African American GFR (CKD) 103.4 (60.0-200.0); Albumin 4.8 g/dL (3.80-4.90); Albumin/Globulin Ratio 2.09 (1.60-3.17); Anion Gap 10.7 mmol/L (4.00-12.00); BUN/Creat Ratio 23.75 Ratio (12.00-20.00); Calcium 9.8 mg/dL (8.7-10.3); Carbon Dioxide 23.3 mmol/L (21.6-31.8); Globulin 2.3 g/dL (1.6-3.3); Non-African American GFR(CKD) 89.2 (60.0-200.0); Potassium 4.4 mmol/L (3.5-5.5); Total Bilirubin 0.4 mg/dL (0.3-1.2); Total Protein 7.1 g/dL (6.2-8.2)
== END | disposition home or self-care (01) ==
LOC: LABWHC1 09:45
PROVIDERS: ATTEND Family Medicine
DX: E78.00 Pure hypercholesterolemia, unspecified (principal); I10 Essential (primary) hypertension; Z12.5 Encounter for screening for malignant neoplasm of prostate
CPT/HCPCS: 80053; 85025; 36415; G0103

== ENCOUNTER → 2019-11-24 | Outpatient (CLI) | payer MEDICARE ==
[2019-11-24 19:36] LABS: African American GFR (CKD) 115.6 (60.0-200.0); Albumin 4.6 g/dL (3.80-4.90); Albumin/Globulin Ratio 2.09 (1.60-3.17); Anion Gap 13.2 mmol/L (4.00-12.00); Calcium 9.6 mg/dL (8.7-10.3); Carbon Dioxide 22.8 mmol/L (21.6-31.8); Chol/HDL Ratio 2.88; Globulin 2.2 g/dL (1.6-3.3); LDL Cholesterol,Calculated 44.2 mg/dL (0.0-131.0); Non-African American GFR(CKD) 99.7 (60.0-200.0); Potassium 4.5 mmol/L (3.5-5.5); Total Bilirubin 0.3 mg/dL (0.2-1.2); Total Protein 6.8 g/dL (6.2-8.2); VLDL Calculation 53.8 mg/dL (5.00-40.00)
== END | disposition home or self-care (01) ==
LOC: LABWHC1 11:54
PROVIDERS: ATTEND Family Medicine
DX: E78.2 Mixed hyperlipidemia (principal); I10 Essential (primary) hypertension
CPT/HCPCS: 36415; 80053; 80061

== ENCOUNTER → 2020-04-12 | Outpatient (CLI) | payer MEDICARE ==
[2020-04-12 17:25] LABS: African American GFR (CKD) 108.5 (60.0-200.0); Albumin 4.6 g/dL (3.80-4.90); Albumin/Globulin Ratio 2.09 (1.60-3.17); Anion Gap 12.1 mmol/L (4.00-12.00); BUN/Creat Ratio 17.14 Ratio (12.00-20.00); Calcium 9.4 mg/dL (8.7-10.3); Carbon Dioxide 21.9 mmol/L (21.6-31.8); Chol/HDL Ratio 3.19; Globulin 2.2 g/dL (1.6-3.3); LDL Cholesterol,Calculated 46.4 mg/dL (0.0-131.0); Non-African American GFR(CKD) 93.6 (60.0-200.0); Potassium 4.7 mmol/L (3.5-5.5); Total Bilirubin 0.4 mg/dL (0.3-1.2); Total Protein 6.8 g/dL (6.2-8.2); VLDL Calculation 71.6 mg/dL (5.00-40.00)
== END | disposition home or self-care (01) ==
LOC: LABWHC1 10:36
PROVIDERS: ATTEND Nurse Practitioner Adult Health
DX: E78.2 Mixed hyperlipidemia (principal); I10 Essential (primary) hypertension
CPT/HCPCS: 36415; 80053; 80061

== ENCOUNTER → 2020-11-21 | Outpatient (CLI) | payer MEDICARE ==
[2020-11-21 18:51] LABS: African American GFR (CKD) 107.7 (60.0-200.0); Albumin 4.7 g/dL (3.80-4.90); Albumin/Globulin Ratio 1.81 (1.60-3.17); Anion Gap 12.5 mmol/L (4.00-12.00); BUN/Creat Ratio 24.29 Ratio (12.00-20.00); Calcium 9.5 mg/dL (8.7-10.3); Carbon Dioxide 22.5 mmol/L (21.6-31.8); Chol/HDL Ratio 3.45; Globulin 2.6 g/dL (1.6-3.3); LDL Cholesterol,Calculated 47.6 mg/dL (0.0-131.0); Potassium 4.4 mmol/L (3.5-5.5); Total Bilirubin 0.3 mg/dL (0.3-1.2); Total Protein 7.3 g/dL (6.2-8.2); VLDL Calculation 60.4 mg/dL (5.00-40.00)
== END | disposition home or self-care (01) ==
LOC: LABWHC1 09:51
PROVIDERS: ATTEND Nurse Practitioner Family
DX: E78.2 Mixed hyperlipidemia (principal); I10 Essential (primary) hypertension
CPT/HCPCS: 36415; 80053; 80061

== ENCOUNTER → 2021-01-30 | Outpatient (CLI) | payer MEDICARE ==
[2021-01-30 14:51] LABS: African American GFR (CKD) 107.7 (60.0-200.0); Albumin 4.6 g/dL (3.80-4.90); Albumin/Globulin Ratio 1.77 (1.60-3.17); BUN/Creat Ratio 27.14 Ratio (12.00-20.00); Calcium 9.8 mg/dL (8.7-10.3); Chol/HDL Ratio 3.51; Globulin 2.6 g/dL (1.6-3.3); LDL Cholesterol,Calculated 44.8 mg/dL (0.0-131.0); Potassium 4.8 mmol/L (3.5-5.5); Total Bilirubin 0.4 mg/dL (0.2-1.2); Total Protein 7.2 g/dL (6.2-8.2); VLDL Calculation 68.2 mg/dL (5.00-40.00)
== END | disposition home or self-care (01) ==
LOC: LABWHC1 09:48
PROVIDERS: ATTEND Nurse Practitioner Adult Health
DX: E78.2 Mixed hyperlipidemia (principal); I10 Essential (primary) hypertension
CPT/HCPCS: 36415; 80053; 80061

== ENCOUNTER → 2021-05-18 | Outpatient (CLI) | payer MEDICARE ==
[2021-05-18 18:31] LABS: Basophils # (A) 0.05 X 10*3/uL (0.00-0.10); Basophils % (A) 0.6 %; Eosinophils # (A) 0.48 X 10*3/uL (0.04-0.35); Eosinophils % (A) 5.6 %; HCT 41.3 % (39.6-50.0); HGB 12.7 g/dL (13.0-17.0); Lymphocytes # (A) 3.75 X 10*3/uL (0.90-5.00); MCHC 30.8 g/dL (32.0-37.0); MCV 91.2 fL (80.0-97.0); Mean Platelet Volume 9.9 fL (9.5-12.2); Monocytes # (A) 0.93 X 10*3/uL (0.20-1.00); Monocytes % (A) 10.9 %; Neutrophils % (A) 38.7 %; Platelet Count 207 X 10*3/uL (140-440); RBC 4.53 X 10*6/uL (4.40-5.60); RDW 15.2 % (11.5-14.5); WBC 8.53 X 10*3/uL (4.50-10.00)
[2021-05-18 19:52] LABS: ALT 25 U/L (10-49); AST 34 U/L (14-35); African American GFR (CKD) 112.2 (60.0-200.0); Albumin 4.3 g/dL (3.8-4.9); Albumin/Globulin Ratio 1.58 (1.60-3.17); Alkaline Phosphatase 69 U/L (41-126); BUN/Creat Ratio 25.71 Ratio (12.00-20.00); Blood Urea Nitrogen 16.3 mg/dL (9.0-27.0); Calcium 9.6 mg/dL (8.7-10.3); Carbon Dioxide 19.6 mmol/L (20.0-27.5); Chloride 106 mmol/L (96-109); Chol/HDL Ratio 3.06 Ratio; Globulin 2.7 g/dL (1.6-3.3); Glucose 89 mg/dL (70-110); LDL Cholesterol,Calculated 50.3 mg/dL (0.0-131.0); Non-African American GFR(CKD) 96.8 (60.0-200.0); Potassium 4.7 mmol/L (3.5-5.5); Sodium 141 mmol/L (135-145)
== END | disposition home or self-care (01) ==
LOC: LABWHC1 11:27
PROVIDERS: ATTEND Nurse Practitioner Family
DX: Z12.5 Encounter for screening for malignant neoplasm of prostate (principal); I10 Essential (primary) hypertension; E78.2 Mixed hyperlipidemia
CPT/HCPCS: 80061; 80053; 85025; 36415; G0103

== ENCOUNTER → 2021-07-26 | Outpatient (CLI) | payer MEDICARE ==
[2021-07-26 10:10] LABS: African American GFR (CKD) >90 (>60 ml/min/1.73 sqM); Blood Urea Nitrogen 14 mg/dL (9-20); Non-African American GFR(CKD) >90 (>60 ml/min/1.73 sqM)
--- NOTE | 2021-07-26 12:40 | CT ---
EXAMINATION TYPE: CT pelvis w con DATE OF EXAM: 07/26/2021 COMPARISON: NONE HISTORY: 75-year-old male C61, Prostate cancer TECHNIQUE: Contiguous axial scanning of the pelvis following administration of 100 ml Omnipaque 300 I V contrast. Delayed images through the bladder and coronal/sagittal reconstructions performed. CT DLP: 2848.6 mGycm Automated exposure control for dose reduction was used. FINDINGS: A couple nonspecific hypodense cortical lesions in the kidneys measuring up to 1.2 cm on the right an d 1.7 cm on the left likely benign renal cysts. Extra renal pelves on both sides. Symmetric excretion of contrast from both kidneys. No dilated small bowel, free fluid, or free air. Gallbladder mildly hydropic and 5.2 cm wide well without any surrounding inflammation There appears to be a partial left hemicolectomy with colon to colon anastomosis at the mid transvers e colon. Stool ball distends the anastomotic site up to 6.1 cm. No obstructive changes identified. Visualized adrenal glands, spleen, and inferior aspect of the liver show no gross abnormality. No mesenteric or retroperitoneal lymphadenopathy seen. There is a prominent 1.8 x 0.8 cm lymph node along the left common iliac chain, axial image 39 which is nonspecific. Otherwise, a few scattered nonenlarged lymph nodes are present along the external wiliam ac chains. Bladder urine distended. Tiny fatty umbilical hernia. Pelvic phleboliths. Prostate gland measures ariel roximately 5.3 cm wide. Visualization is limited due to extensive streak and beam hardening artifact from the patient's right hip total arthroplasty. No abnormal fluid collection in the pelvis or pelvic lymphadenopathy otherwise seen. Severe degenerative change left hip. Right hip arthroplasty. Osteitis pubis. Mild degenerative change at the SI joints. Moderate to advanced degenerative disc disease mid to lower lumbar spine with Baas trup's disease and hypertrophic facet arthropathy. Grade 1 spondylolisthesis L1-L5 levels. No suspici ous sclerotic lesion identified in the pelvis. IMPRESSION: 1. PROSTATOMEGALY AT 5.3 CM WIDE. VISUALIZATION IS LIMITED DUE TO EXTENSIVE METAL ARTIFACT FROM THE P ATIENT'S RIGHT HIP ARTHROPLASTY. 2. NONSPECIFIC PROMINENT 1.8 X 0.8 CM LYMPH NODE ALONG THE LEFT COMMON ILIAC CHAIN. CORRELATE WITH PS A VALUES AND CONSIDER SHORT INTERVAL FOLLOW-UP TO REASSESS THIS LYMPH NODE. 3. OTHERWISE, NO VISUALIZED RETROPERITONEAL LYMPHADENOPATHY OTHERWISE SEEN. 4. MILDLY HYDROPIC GALLBLADDER 5.2 CM WIDE PROBABLY DUE TO FASTING STATE. NO ASSOCIATED INFLAMMATION BY CT. IF RIGHT UPPER QUADRANT PAIN, ULTRASOUND OR HIDA SCAN COULD BE CONSIDERED. 5. THERE APPEARS TO BE PREVIOUS PARTIAL LEFT HEMICOLECTOMY; CLINICALLY CORRELATE.
--- NOTE | 2021-07-26 14:55 | NM ---
EXAMINATION TYPE: NM bone scan whole body DATE OF EXAM: 07/26/2021 COMPARISON: NONE HISTORY: C61 prostate ca Delayed whole-body scanning was performed following the injection of 21.9 mCi Tc 99m MDP. Images acq uired 4.5 hours post injection. FINDINGS: There is focal increased signal noted to involve the costovertebral junction on the left at T10. No a dditional intense foci of radiotracer accumulation are seen. There is degenerative uptake about the s houlders, sternoclavicular joints, bilateral ankles and feet. Mild degenerative uptake about the thor acic spine as well as the lumbar spine. IMPRESSION: 1.There is focal increased signal noted to involve the costovertebral junction on the left at T10. Wh ile this could be posttraumatic in nature solitary metastatic lesion is difficult to exclude. Radiogr aphic correlation is advised.
== END | disposition home or self-care (01) ==
LOC: RADNMMAIN 09:14
PROVIDERS: ATTEND Urology
DX: C61 Malignant neoplasm of prostate (principal); K82.1 Hydrops of gallbladder; N40.0 Benign prostatic hyperplasia without lower urinary tract symptoms; Z96.641 Presence of right artificial hip joint
CPT/HCPCS: 82565; 84520; 72193; 36415; 78306; A9503; Q9967

== ENCOUNTER → 2021-08-15 | Outpatient (CLI) | payer MEDICARE ==
--- NOTE | 2021-08-15 09:00 | CT ---
EXAMINATION TYPE: CT thoracic spine wo con DATE OF EXAM: 08/15/2021 COMPARISON: Bone scan dated 07/26/2021 HISTORY: hx of prostate ca, f/u on abnormal finding from prior testing CT DLP: 2594.0 mGycm Automated exposure control for dose reduction was used. TECHNIQUE: Multiplanar CT scan of the thoracic spine without IV contrast administration. FINDINGS: Preserved dorsal kyphosis. No significant anterolisthesis or retrolisthesis. No definite vertebral jaime dy collapse or acute displaced fracture. Degenerative changes of the mid to lower thoracic spine with multilevel opposing endplate large osteophytosis and mild degenerative discs. Multilevel costovertebral osteoarthropathy is noted most evident at the left T10 and bilateral T9 cos tovertebral joints. This may correspond to the abnormality seen on the previous bone scan. No gross l ytic or sclerotic bone lesion. No significant thoracic bony central spinal canal stenosis or neurofor aminal stenosis. Suspected Schmorl's node at the lower endplate of L1. Degenerative changes of the up per lumbar spine and lower cervical spine with severe multilevel cervical facet osteoarthropathy. Suspected spinal canal stenosis is seen at L2-3 level. Large left paratracheal cyst measuring 4.6 cm, possibly arising from the left thyroid lobe, please correlate with thyroid ultrasound results. Scatt ered arterial atherosclerotic calcifications. The pulmonary trunk measures 3.4 cm which may suggest p ulmonary hypertension. IMPRESSION: Severe left T10 costovertebral osteoarthropathy likely corresponding to the bone scan finding. No irving ss lytic or sclerotic bone lesion identified. Other incidental findings and recommendations as detail ed above.
== END | disposition home or self-care (01) ==
LOC: RADCTMAIN 07:16
PROVIDERS: ATTEND Radiology Radiation Oncology
DX: M47.814 Spondylosis without myelopathy or radiculopathy, thoracic region (principal); Z85.46 Personal history of malignant neoplasm of prostate
CPT/HCPCS: 72128

== ENCOUNTER 2021-09-07 09:40 | Day surgery (SDC) | payer MEDICARE ==
--- NOTE | 2021-09-07 06:26 | P.GSHP ---
History of Present Illness H&P Date: 09/07/21 Chief Complaint: Prostate cancer The patient is a 76-year-old white male found in April 2021 to have an elevated PSA level of 19.2. BROCK revealed bilateral prostate nodularity, greater on the right. He underwent a prostate ultrasound with biopsies. The prostate volume was 57 mL. 5 of 6 biopsies showed Logan 7/8 adenocarcinoma. Bone scan showed increased uptake at T8, the significance of which is unclear. Computed tomography scan showed an enlarged left common iliac lymph node. He is to be treated with IMRT and androgen deprivation therapy. He now comes for SpaceOAR implant. - Cardiovascular Cardiovascular: Reports high blood pressure - Genitourinary (Male) Genitourinary: Reports nocturia Past Medical History Past Medical History: Atrial Fibrillation, Cancer, Hyperlipidemia, Hypertension, Osteoarthritis (OA), Prostate Disorder Additional Past Medical History / Comment(s): PROSTATE CANCER History of Any Multi-Drug Resistant Organisms: None Reported Past Surgical History: Appendectomy, Bowel Resection, Heart Catheterization, Orthopedic Surgery Additional Past Surgical History / Comment(s): right knee replacement x2, left knee replacement, right hip replacement, colonoscopy with POLYP NOT CANCEROUS BUT PRECANCEROUS. Follw-up colonoscopies have been good. BILATERAL CATARACT/LENS Past Anesthesia/Blood Transfusion Reactions: Previous Problems w/ Anesthesia Additional Past Anesthesia/Blood Transfusion Reaction / Comment(s): increased blood pressure and anxiety Past Psychological History: No Psychological Hx Reported Smoking Status: Former smoker Past Alcohol Use History: Rare Additional Past Alcohol Use History / Comment(s): SMOKED FOR 10 TEN YEARS ONLY Past Drug Use History: None Reported - Past Family History Father Family Medical History: Cancer, Diabetes Mellitus Additional Family Medical History / Comment(s): melanoma Mother Family Medical History: Coronary Artery Disease (CAD), CVA/TIA, Diabetes Mellitus Medications and Allergies Home Medications Medication Instructions Recorded Confirmed Type Latanoprost 1 drop BOTH EYES HS 08/17/16 09/04/21 History Meloxicam 7.5 mg PO BID 08/17/16 09/04/21 History Potassium Chloride [Klor-Con 10] 10 meq PO QAM 08/17/16 09/04/21 History Torsemide 20 mg PO QAM 08/17/16 09/04/21 History Metoprolol Tartrate [Lopressor] 25 mg PO BID #60 tab 08/18/16 09/04/21 Rx Rivaroxaban [Xarelto] 20 mg PO AC-SUPPER #30 tab 08/18/16 09/04/21 Rx lisinopriL [Zestril] 5 mg PO BID #60 tab 08/18/16 09/04/21 Rx Ascorbic Acid [Vitamin C] 1 tab PO DAILY 09/04/21 09/04/21 History Atorvastatin [Lipitor] 20 mg PO QAM 09/04/21 09/04/21 History Bicalutamide [Casodex] 50 mg PO DAILY 09/04/21 09/04/21 History Calcium Carbonate [Calcium] 1 tab PO DAILY 09/04/21 09/04/21 History Cholecalciferol [Vitamin D3 (25 1 tab PO DAILY 09/04/21 09/04/21 History Mcg = 1000 Iu)] Flecainide [Tambocor] 50 mg PO BID 09/04/21 09/04/21 History Multivitamins, Thera [Multivitamin 1 tab PO DAILY 09/04/21 09/04/21 History (formulary)] Niacinamide 1 tab PO DAILY 09/04/21 09/04/21 History Vit A/Vit C/Vit E/Zinc/Copper 1 cap PO DAILY 09/04/21 09/04/21 History [ICAPS SOFTGEL] Allergies Allergy/AdvReac Type Severity Reaction Status Date / Time No Known Allergies Allergy Verified 09/04/21 12:17 Surgical - Exam - General well developed, well nourished, no distress - Respiratory normal respiratory effort - Abdomen Abdomen: soft, non tender, no guarding, no rigid, no rebound - Genitourinary normal penis with no external lesions, testicles non-tender left: scrotal mass/hydrocele - Rectum Rectum: normal sphincter tone, no masses, other (Bilateral prostate nodules, R>L) - Psychiatric oriented to time, oriented to person, oriented to place, speech is normal, memory intact Assessment and Plan (1) Malignant neoplasm of prostate Status: Acute Code(s): C61 - MALIGNANT NEOPLASM OF PROSTATE SNOMED Code(s): 539175289 Plan: The patient will receive IMRT. He has elected to undergo SpaceOAR implant to decrease the likelihood of rectal toxicity. The procedure has been reviewed in detail with him. He is aware of potential risks, which include anesthesia, bleeding, and infection. He is aware that the procedure will be aborted if rectal perforation occurs.
[~2021-09-07 09:40] MED LIST: DEXAMETHASONE SOD PHOSPHATE 4 MG/ML 1 ML VIAL IV ONE; HYDROmorphone 0.5 MG/0.5 ML SYRINGE IVP PRN; LACTATED RINGERS 1,000 ML IV SCH; LIDOCAINE 1% (10MG/ML) FOR IV START INTRADERMA PRN; ONDANSETRON 4 MG/2 ML VIAL IVP ONE; ceFAZolin 3 GM in SODIUM CHLORIDE 0.9% 100 ML IVPB PRN; fentaNYL (PF) 50 MCG/ML 2 ML AMP IV PRN
[2021-09-07] MEDS ORDERED: LIDOCAINE 2% INJ 20 MG/ML SQ ONE (11:58)
[2021-09-07] MEDS ORDERED: GLYCOPYRROLATE 0.2 MG/ML 2 ML VIAL ONE (12:00)
[2021-09-07] MEDS ORDERED: MIDAZOLAM 2 MG/2 ML VIAL ONE (12:00)
[2021-09-07] MEDS ORDERED: fentaNYL (PF) 50 MCG/ML 2 ML AMP ONE (12:00)
[2021-09-07] MEDS ORDERED: KETAMINE 10 MG/ML 20 ML VIAL ONE (12:00)
[2021-09-07] MEDS ORDERED: PROPOFOL 10 MG/ML 20 ML VIAL IV ONE (12:00)
[2021-09-07 12:47] VITALS: TEMP 97.2
[2021-09-07 13:33] VITALS: RESP 14
[2021-09-07 13:49] VITALS: BP 167/83; PULSE 47
--- NOTE | 2021-09-07 13:50 | P.OP ---
Date of Procedure: 09/07/21 Preoperative Diagnosis: Adenocarcinoma of the prostate Postoperative Diagnosis: Same Procedure(s) Performed: SpaceOAR Implant Anesthesia: MAC Surgeon: Rambo Romero Estimated Blood Loss (ml): 10 IV fluids (ml): 300 Pathology: none sent Condition: stable Disposition: PACU Indications for Procedure: The patient is a 76-year-old white male found in April 2021 to have an elevated PSA level of 19.2. BROCK revealed bilateral prostate nodularity, greater on the right. He underwent a prostate ultrasound with biopsies. The prostate volume was 57 mL. 5 of 6 biopsies showed Rachelle 7/8 adenocarcinoma. Bone scan showed increased uptake at T8, the significance of which is unclear. Computed tomography scan showed an enlarged left common iliac lymph node. He is to be treated with IMRT and androgen deprivation therapy. He now comes for SpaceOAR implant. Operative Findings: Excellent separation created between prostate and rectum. Description of Procedure: The patient was taken to the operating room and placed in the dorsolithotomy position, with his legs supported in Iglesia stirrups. The external genitalia was prepped and draped sterilely. The Bruel and Kjaer transrectal ultrasound probe was placed intrarectally. The prostate was imaged. The probe was then placed within the stabilizing stand. A spinal needle was advanced under ultrasonic guidance to the level of the urogenital diaphragm, and lidocaine was used to infiltrate the tissues as the needle was withdrawn. Next, the SpaceOAR needle was passed through the midline of the perineum, 1-2 cm anterior to the anal opening. The needle was slowly advanced under ultrasonic guidance until the needle tip was located within the fat plane between the prostate and rectum, at the level of the mid prostate gland. The needle was confirmed to be midline on the axial imaging. A small amount of normal saline was injected for hydrodissection. Next, the SpaceOAR components were mixed and loaded into the Y connector per protocol. The Y connector was then connected to the needle, and the components were injected slowly over a course of approximately 12 seconds. A total of 10 ml was injected. Significant distance was created between the prostate and rectum, as desired. It should be noted that at no point was there any concern of rectal perforation. The needle was withdrawn, as well as the transrectal ultrasound probe, and the procedure was terminated. The patient tolerated the procedure well and was taken to the recovery room in stable condition.
== END 2021-09-07 14:12 | disposition home or self-care (01) ==
LOC: OR 09:40
PROVIDERS: ATTEND Urology
DX: C61 Malignant neoplasm of prostate (principal); I10 Essential (primary) hypertension; R35.1 Nocturia; I48.91 Unspecified atrial fibrillation; E78.5 Hyperlipidemia, unspecified; M19.90 Unspecified osteoarthritis, unspecified site; E66.01 Morbid (severe) obesity due to excess calories; Z68.42 Body mass index [BMI] 45.0-49.9, adult; Z79.899 Other long term (current) drug therapy; Z79.01 Long term (current) use of anticoagulants; Z87.891 Personal history of nicotine dependence; Z90.49 Acquired absence of other specified parts of digestive tract; Z98.890 Other specified postprocedural states; Z96.653 Presence of artificial knee joint, bilateral; Z96.641 Presence of right artificial hip joint; Z86.010 Personal history of colon polyps; Z98.42 Cataract extraction status, left eye; Z98.41 Cataract extraction status, right eye; Z96.1 Presence of intraocular lens; Z80.8 Family history of malignant neoplasm of other organs or systems; Z83.3 Family history of diabetes mellitus; Z82.3 Family history of stroke; Z82.49 Family history of ischemic heart disease and other diseases of the circulatory system
CPT/HCPCS: 55874; C1889; J2001; J2250; J1100; J0690; J2405; J3010; J2704

== ENCOUNTER → 2021-11-21 | Outpatient (CLI) | payer MEDICARE, SELFPAY | END | disposition home or self-care (01) | LOC: LABWHC1 09:47 | PROVIDERS: ATTEND Radiology Radiation Oncology | DX: C61 Malignant neoplasm of prostate (principal); R35.1 Nocturia; Z90.49 Acquired absence of other specified parts of digestive tract | CPT/HCPCS: 36415; 84153 ==

== ENCOUNTER → 2022-02-20 | Outpatient (CLI) | payer MEDICARE ==
[2022-02-20 15:58] LABS: ALT 19 U/L (10-49); AST 30 U/L (14-35); African American GFR (CKD) 109.2 (60.0-200.0); Albumin 4.3 g/dL (3.8-4.9); Albumin/Globulin Ratio 1.55 (1.60-3.17); Alkaline Phosphatase 68 U/L (41-126); BUN/Creat Ratio 24.62 Ratio (12.00-20.00); Blood Urea Nitrogen 16.4 mg/dL (9.0-27.0); Calcium 9.8 mg/dL (8.7-10.3); Carbon Dioxide 22.3 mmol/L (20.0-27.5); Chloride 103 mmol/L (96-109); Chol/HDL Ratio 3.25 Ratio; Globulin 2.7 g/dL (1.6-3.3); Glucose 92 mg/dL (70-110); LDL Cholesterol,Calculated 45.2 mg/dL (0.0-131.0); Non-African American GFR(CKD) 94.2 (60.0-200.0); Potassium 4.4 mmol/L (3.5-5.5); Sodium 140 mmol/L (135-145)
== END | disposition home or self-care (01) ==
LOC: LABWHC1 10:21
PROVIDERS: ATTEND Internal Medicine Interventional Cardiology
DX: E78.2 Mixed hyperlipidemia (principal)
CPT/HCPCS: 36415; 80053; 80061

== ENCOUNTER → 2022-03-21 | Outpatient (CLI) | payer MEDICARE | END | disposition home or self-care (01) | LOC: LABWHC1 11:29 | PROVIDERS: ATTEND Radiology Radiation Oncology | DX: C61 Malignant neoplasm of prostate (principal); Z90.49 Acquired absence of other specified parts of digestive tract; R35.1 Nocturia | CPT/HCPCS: 36415; 84153 ==

== ENCOUNTER → 2022-05-31 | Outpatient (CLI) | payer MEDICARE ==
[2022-05-31 19:35] LABS: Basophils # (A) 0.04 X 10*3/uL (0.00-0.10); Basophils % (A) 0.6 %; Eosinophils # (A) 0.19 X 10*3/uL (0.04-0.35); Eosinophils % (A) 2.7 %; HCT 40.3 % (39.6-50.0); HGB 12.4 g/dL (13.0-17.0); Immature Grans, Automated 0.6 %; Lymphocytes # (A) 2.07 X 10*3/uL (0.90-5.00); Lymphocytes % (A) 29.3 %; MCH 28.3 pg (27.0-32.0); MCHC 30.8 g/dL (32.0-37.0); Mean Platelet Volume 9.9 fL (9.5-12.2); Monocytes # (A) 0.74 X 10*3/uL (0.20-1.00); Monocytes % (A) 10.5 %; NRBC Per 100 WBC 0 /100 WBCS (0.0-0.0); Neutrophils # (A) 3.99 X 10*3/uL (1.80-7.70); Neutrophils % (A) 56.3 %; Platelet Count 224 X 10*3/uL (140-440); RBC 4.38 X 10*6/uL (4.40-5.60); RDW 14.9 % (11.5-14.5); WBC 7.07 X 10*3/uL (4.50-10.00)
[2022-05-31 22:23] LABS: ALT 18 U/L (10-49); AST 23 U/L (14-35); Albumin 4.2 g/dL (3.8-4.9); Albumin/Globulin Ratio 1.62 (1.60-3.17); Alkaline Phosphatase 82 U/L (41-126); Blood Urea Nitrogen 13.8 mg/dL (9.0-27.0); Calcium 10.1 mg/dL (8.7-10.3); Carbon Dioxide 25.5 mmol/L (20.0-27.5); Chloride 101 mmol/L (96-109); Globulin 2.6 g/dL (1.6-3.3); Glucose 92 mg/dL (70-110); Non-African American GFR(CKD) 98.4 (60.0-200.0); Potassium 4.2 mmol/L (3.5-5.5); Sodium 140 mmol/L (135-145); Total Protein 6.8 g/dL (6.2-8.2)
[2022-05-31 22:24] LABS: Chol/HDL Ratio 3.39 Ratio; LDL Cholesterol,Calculated 63.5 mg/dL (0.0-131.0)
== END | disposition home or self-care (01) ==
LOC: LABWHC1 11:05
PROVIDERS: ATTEND Family Medicine
DX: E78.2 Mixed hyperlipidemia (principal); I10 Essential (primary) hypertension
CPT/HCPCS: 36415; 80053; 80061; 85025

== ENCOUNTER → 2022-09-17 | Outpatient (CLI) | payer MEDICARE | END | disposition home or self-care (01) | LOC: LABWHC1 12:53 | PROVIDERS: ATTEND Radiology Radiation Oncology | DX: C61 Malignant neoplasm of prostate (principal); Z90.49 Acquired absence of other specified parts of digestive tract; R35.1 Nocturia | CPT/HCPCS: 36415; 84153 ==

== ENCOUNTER → 2022-11-16 | Outpatient (CLI) | payer MEDICARE ==
[2022-11-16 16:46] LABS: ALT 18 U/L (10-49); AST 24 U/L (14-35); African American GFR (CKD) 106.1 (60.0-200.0); Albumin 4.3 g/dL (3.8-4.9); Albumin/Globulin Ratio 1.71 (1.60-3.17); Alkaline Phosphatase 77 U/L (41-126); BUN/Creat Ratio 25.07 Ratio (12.00-20.00); Blood Urea Nitrogen 17.6 mg/dL (9.0-27.0); Carbon Dioxide 23.9 mmol/L (20.0-27.5); Chloride 103 mmol/L (96-109); Chol/HDL Ratio 2.87 Ratio; Globulin 2.5 g/dL (1.6-3.3); Glucose 97 mg/dL (70-110); LDL Cholesterol,Calculated 48.4 mg/dL (0.0-131.0); Non-African American GFR(CKD) 91.6 (60.0-200.0); Potassium 4.4 mmol/L (3.5-5.5); Sodium 140 mmol/L (135-145); Total Protein 6.8 g/dL (6.2-8.2)
== END | disposition home or self-care (01) ==
LOC: LABWHC1 09:19
PROVIDERS: ATTEND Internal Medicine Interventional Cardiology
DX: E78.2 Mixed hyperlipidemia (principal)
CPT/HCPCS: 36415; 80053; 80061

== ENCOUNTER 2022-12-31 13:01 | Emergency (ER) | payer MEDICARE ==
[2022-12-31 13:19] VITALS: RESP 18; TEMP 98
--- NOTE | 2022-12-31 14:18 | ED ---
Lower Extremity Injury HPI - General Chief Complaint: Extremity Injury, Lower Stated Complaint: rt leg pain/injury Time Seen by Provider: 12/31/22 13:22 Source: patient, RN notes reviewed Mode of arrival: wheelchair Limitations: no limitations - History of Present Illness Initial Comments: This is a 31-year-old male who presents to the emergency department for right leg pain. States that he fell a little over a week ago, however his pain had been improving. Over the last couple of days, however, the pain in the right lower leg started to worsen. He has noticed increasing swelling, redness, and heat. Pain is worse when he tries to walk. He is on Xarelto, which he has been compliant with. Denies any fevers, chills, sore throat, cough, dyspnea, chest pain, palpitations, abdominal pain, nausea, vomiting, diarrhea, back pain, or headaches. - Related Data Home Medications Medication Instructions Recorded Confirmed Latanoprost 1 drop BOTH EYES HS 08/17/16 09/07/21 Meloxicam 7.5 mg PO BID 08/17/16 09/07/21 Potassium Chloride [Klor-Con 10] 10 meq PO QAM 08/17/16 09/07/21 Torsemide 20 mg PO QAM 08/17/16 09/07/21 Ascorbic Acid [Vitamin C] 1 tab PO DAILY 09/04/21 09/07/21 Atorvastatin [Lipitor] 20 mg PO QAM 09/04/21 09/07/21 Bicalutamide [Casodex] 50 mg PO DAILY 09/04/21 09/07/21 Calcium Carbonate [Calcium] 1 tab PO DAILY 09/04/21 09/07/21 Cholecalciferol [Vitamin D3 (25 1 tab PO DAILY 09/04/21 09/07/21 Mcg = 1000 Iu)] Flecainide [Tambocor] 50 mg PO BID 09/04/21 09/07/21 Multivitamins, Thera [Multivitamin 1 tab PO DAILY 09/04/21 09/07/21 (formulary)] Niacinamide 1 tab PO DAILY 09/04/21 09/07/21 Vit A/Vit C/Vit E/Zinc/Copper 1 cap PO DAILY 09/04/21 09/07/21 [ICAPS SOFTGEL] Previous Rx's Medication Instructions Recorded Metoprolol Tartrate [Lopressor] 25 mg PO BID #60 tab 08/18/16 Rivaroxaban [Xarelto] 20 mg PO AC-SUPPER #30 tab 08/18/16 lisinopriL [Zestril] 5 mg PO BID #60 tab 08/18/16 Cephalexin [Keflex] 500 mg PO Q6HR 7 Days #28 cap 12/31/22 Allergies Allergy/AdvReac Type Severity Reaction Status Date / Time No Known Allergies Allergy Verified 12/31/22 13:19 Review of Systems ROS Statement: Those systems with pertinent positive or pertinent negative responses have been documented in the HPI. ROS Other: All systems not noted in ROS Statement are negative. Past Medical History Past Medical History: Atrial Fibrillation, Cancer, Hyperlipidemia, Hypertension, Osteoarthritis (OA), Prostate Disorder Additional Past Medical History / Comment(s): PROSTATE CANCER History of Any Multi-Drug Resistant Organisms: None Reported Past Surgical History: Appendectomy, Bowel Resection, Heart Catheterization, Orthopedic Surgery Additional Past Surgical History / Comment(s): right knee replacement x2, left knee replacement, right hip replacement, colonoscopy with POLYP NOT CANCEROUS BUT PRECANCEROUS. Follw-up colonoscopies have been good. BILATERAL CATARACT/LENS Past Anesthesia/Blood Transfusion Reactions: Previous Problems w/ Anesthesia Additional Past Anesthesia/Blood Transfusion Reaction / Comment(s): increased blood pressure and anxiety Past Psychological History: No Psychological Hx Reported Past Alcohol Use History: Rare Past Drug Use History: None Reported - Past Family History Father Family Medical History: Cancer, Diabetes Mellitus Additional Family Medical History / Comment(s): melanoma Mother Family Medical History: Coronary Artery Disease (CAD), CVA/TIA, Diabetes Mellitus General Exam Limitations: no limitations General appearance: alert, in no apparent distress Head exam: Present: atraumatic, normocephalic, normal inspection Respiratory exam: Present: normal lung sounds bilaterally. Absent: respiratory distress, wheezes, rales, rhonchi, stridor Cardiovascular Exam: Present: regular rate, normal rhythm, normal heart sounds. Absent: systolic murmur, diastolic murmur, rubs, gallop, clicks Extremities exam: Present: other (2+ pitting edema to the bilateral lower extremities, worse on the right. There is an area of erythema and increased heat to the anterior aspect of the right tib-fib. 2+ DP and TP pulses and capillary refill <1 second.) Neurological exam: Present: alert, oriented X3, CN II-XII intact Psychiatric exam: Present: normal affect, normal mood Course Vital Signs 12/31/22 12/31/22 13:15 15:45 Temperature 98.0 F Pulse Rate 62 90 Respiratory 18 18 Rate Blood Pressure 148/83 132/78 O2 Sat by Pulse 982 H 100 Oximetry Medical Decision Making - Medical Decision Making This is a 77-year-old male who presents to the emergency department for right leg pain. Was pt. sent in by a medical professional or institution? @ -No Did you speak to anyone other than the patient for history? @ -No Did you review nursing and triage notes? @ -Yes, and I agree, it is accurate with regards to the patient's symptoms. Were old charts reviewed? @ -No Differential Diagnosis? @ -Differential Leg Pain: Leg fracture, leg sprain, DVT, PVD, arterial insufficiency, iliac artery aneurysm, cellulitis, compartment syndrome, tendinopathy, nerve entrapment, piriformis syndrome, osteoarthritis, rhabdomyolysis, myositis, cramping from an electrolyte imbalance, this is not meant to be an all inclusive list. EKG interpreted by me (3pts min.)? @ -Not obtained X-rays interpreted by me (1pt min.)? @ -X-ray of the right tib/fib and knee obtained. My interpretation identifies no acute fractures or soft tissue swelling. CT interpreted by me (1pt min.)? @ -Not obtained U/S interpreted by me (1pt. min.)? @ -Duplex US of the right lower extremity obtained. My interpretation identifies no evidence of a DVT. What testing was considered but not performed? (CT, X-rays, U/S, labs)? Why? @ -None What meds were considered but not given? Why? @ -None Did you discuss the management of the patient with other professionals? @ -No Did you reconcile home meds? @ -No Was smoking cessation discussed for >3mins.? @ -No Was critical care preformed (if so, how long)? @ -No Were there social determinants of health that impacted care today? How? (Homelessness, low income, unemployed, alcoholism, drug addiction, transportation, low edu. Level, literacy, decrease access to med. care, nursing home, rehab)? @ -No Was there de-escalation of care discussed even if they declined? (Discuss DNR or withdrawal of care, Hospice)? @ -No What co-morbidities impacted this encounter? (DM, HTN, Smoking, COPD, CAD, Cancer, CVA, Hep., AIDS, mental health diagnosis, sleep apnea, morbid obesity)? @ -A-fib, HTN, HLD, OA Was patient admitted / discharged? @ -Discharged. Duplex ultrasound of right lower extremity obtained revealing no evidence of a DVT or other acute process. X-ray of the right tib-fib and knee obtained revealing no acute process. Patient does appear to have an area of erythema and increased heat, and given that there is no evidence of a DVT, we discussed that this may be related to a cellulitis. Given these physical exam findings in light of the patient's increasing pain, we'll treat him with antibiotics for possible cellulitis. Prescription for Keflex provided with dosing instructions reviewed. Otherwise advised close follow-up with his primary care provider for reevaluation. Undiagnosed new problem with uncertain prognosis? @ -None Drug Therapy requiring intensive monitoring for toxicity (Heparin, Nitro, Insulin, Cardizem)? @ -None Were any procedures done? @ -None Diagnosis/symptom? @ -Right LE pain, right LE cellulitis Acute, or Chronic, or Acute on Chronic? @ -Acute Uncomplicated (without systemic symptoms) or Complicated (systemic symptoms)? @ -Uncomplicated Side effects of treatment? @ -None Exacerbation, Progression, or Severe Exacerbation] @ -Not applicable Poses a threat to life or bodily function? @ -No Return precautions reviewed in depth, the patient is instructed to return to the emergency department with any new, worsening, or concerning symptoms. Patient verbalized understanding. This case was discussed in detail with the attending ED physician, Dr. Lantigua. Presentation, findings, and treatment plan discussed in detail as well. - Radiology Data Radiology results: report reviewed, image reviewed Disposition Clinical Impression: Cellulitis of right lower extremity Disposition: HOME SELF-CARE Instructions (If sedation given, give patient instructions): Cellulitis (ED) Additional Instructions: Return to the emergency department with any new, worsening, or concerning symptoms. Take the antibiotic as prescribed for 7 days. Take Tylenol as needed for pain relief. Follow up with your primary care provider in 1-2 days. Prescriptions: Cephalexin [Keflex] 500 mg PO Q6HR 7 Days #28 cap Is patient prescribed a controlled substance at d/c from ED?: No Referrals: Jamison Almanza MD [Primary Care Provider] - 1-2 days
--- NOTE | 2022-12-31 14:39 | US ---
EXAMINATION TYPE: US venous doppler duplex LE RT DATE OF EXAM: 12/31/2022 1:45 PM COMPARISON: US 2017 CLINICAL INDICATION: Male, 77 years old with history of Leg pain and swelling; Right leg pain SIDE PERFORMED: Right TECHNIQUE: The lower extremity deep venous system is examined utilizing real time linear array sonog ben with graded compression, doppler sonography and color-flow sonography. VESSELS IMAGED: Common Femoral Vein Deep Femoral Vein Greater Saphenous Vein * Femoral Vein Popliteal Vein Small Saphenous Vein * Proximal Calf Veins (* superficial vessels) Right Leg: Appears negative for DVT IMPRESSION: Grayscale, color doppler, spectral doppler imaging performed of the deep veins of the lo wer extremities. There is normal flow, compressibility, vascular waveforms.
--- NOTE | 2022-12-31 15:27 | XR ---
EXAMINATION TYPE: XR knee complete RT DATE OF EXAM: 12/31/2022 CLINICAL HISTORY: pain TECHNIQUE: Three views of the right knee are obtained. COMPARISON: None. FINDINGS: There is no acute fracture/dislocation. Total plasty is noted to be in place. Small suprap atellar joint effusion seen. Infrapatellar soft tissue edema. The overlying soft tissue appears unrem arkable. IMPRESSION: There is no acute fracture or dislocation.ICD 10 NO FRACTURE, INITIAL EVALUATION
--- NOTE | 2022-12-31 15:28 | XR ---
EXAMINATION TYPE: XR tibia fibula RT DATE OF EXAM: 12/31/2022 CLINICAL HISTORY: pain TECHNIQUE: AP and lateral images of the right tibia and fibula are obtained. COMPARISON: None. FINDINGS: There is no acute fracture/dislocation evident. The joint spaces appear within normal elizondo its. The overlying soft tissue appears unremarkable. IMPRESSION: There is no acute fracture or dislocation seen. ICD 10 NO FRACTURE, INITIAL EVALUATION
[2022-12-31] MEDS ORDERED: ACET/COD 300 MG/30 MG STARTER PACK 6 TAB BTL PO STA (15:32)
[2022-12-31 15:46] VITALS: BP 132/78; PULSE 90
== END 2022-12-31 15:53 | disposition home or self-care (01) ==
LOC: EC 13:01
DX: L03.115 Cellulitis of right lower limb (principal); I48.91 Unspecified atrial fibrillation; E78.5 Hyperlipidemia, unspecified; I10 Essential (primary) hypertension; M19.90 Unspecified osteoarthritis, unspecified site; Z79.1 Long term (current) use of non-steroidal anti-inflammatories (NSAID); Z79.899 Other long term (current) drug therapy
CPT/HCPCS: 99284

== ENCOUNTER → 2023-03-21 | Outpatient (CLI) | payer MEDICARE | END | disposition home or self-care (01) | LOC: LABWHC1 10:45 | PROVIDERS: ATTEND Radiology Radiation Oncology | DX: C61 Malignant neoplasm of prostate (principal); Z90.49 Acquired absence of other specified parts of digestive tract; R25.1 Tremor, unspecified | CPT/HCPCS: 36415; 84153 ==

== ENCOUNTER → 2023-04-09 | Outpatient (CLI) | payer MEDICARE ==
[2023-04-09 16:15] LABS: Prostate Specific Antigen 2.82 ng/mL (0.000-6.500); Testosterone 16.8 ng/dL (86.98-780.10)
== END | disposition home or self-care (01) ==
LOC: LABWHC1 10:36
PROVIDERS: ATTEND Radiology Radiation Oncology
DX: C61 Malignant neoplasm of prostate (principal); R35.1 Nocturia; Z90.49 Acquired absence of other specified parts of digestive tract
CPT/HCPCS: 36415; 84153; 84403

== ENCOUNTER → 2023-05-15 | Outpatient (CLI) | payer MEDICARE | END | disposition home or self-care (01) | LOC: LABWHC1 11:36 | PROVIDERS: ATTEND Radiology Radiation Oncology | DX: C61 Malignant neoplasm of prostate (principal); R35.1 Nocturia; Z90.49 Acquired absence of other specified parts of digestive tract | CPT/HCPCS: 36415; 84153 ==

== ENCOUNTER → 2023-06-27 | Outpatient (CLI) | payer MEDICARE ==
--- NOTE | 2023-06-28 14:21 | PE ---
EXAMINATION TYPE: PET CT fusion skull to thigh DATE OF EXAM: 06/27/2023 CLINICAL INDICATION:Male, 77 years old with history of C61 PROSTATE CANCER; TECHNIQUE: Following the intravenous administration of 6.90 mCi of Ga-68 Illuccix (PSMA), whole bod y images are performed from the skull base to the midthigh. Images are reviewed on the computer in t he coronal, axial, and sagittal planes. Reconstructed rotating images are created on independent wor kstation and reviewed on the computer. A non-contrast CT is performed in conjunction with the PET s can. CT DLP: 1159.52 mGycm, Automated exposure control for dose reduction was used. COMPARISON: CT 07/26/2021, 08/15/2021, PET/CT None, FINDINGS: Mediastinal SUV mean is 1.6.. Hepatic parenchyma SUV mean is 5.7. SKULL BASE AND NECK: * No suspicious radiotracer activity. * Left thyroid gland nodule measuring up to 4.7 x 2.4 cm. CHEST, MEDIASTINUM, AND HILAR REGION: No suspicious radiotracer activity. ABDOMEN AND PELVIS: * No abnormal uptake within the prostate gland itself. * Right adrenal nodule Max SUV 28.2, 18 x 13 mm. MUSCULOSKELETAL STRUCTURES: Abnormal radiotracer activity within the osseous structures. Examples include: * L1 vertebral body max SUV 4.4. T10 vertebral body diffusely and extensively 39.4. * Extending into the left 10th rib more laterally max SUV 26.5 the expansile appearance of the rib w ith sclerosis. * Posterior elements of T9 vertebrae with Max SUV 24.28. * Focus within the T4 vertebral body max SUV 16.[address]: Fat-containing inguinal hernias. Right hip arthroplasty with hardware intact. Severe degene ration changes of the left hip. Mild cardiomegaly. Mild coronary artery atherosclerosis. Mild centril obular emphysema changes throughout the lungs. Streaky atelectasis in the lung bases. IMPRESSION: 1. Abnormal radiotracer activity within the osseous structures compatible with metastatic disease. 2. No abnormal radiotracer activity within the prostate gland itself. 3. Suspicious right adrenal nodule with increased radiotracer activity concerning for metastatic dis ease. 4. Left thyroid gland nodule. Consider complete evaluation with thyroid ultrasound if not recently p erformed.
== END | disposition home or self-care (01) ==
LOC: RADPETMAIN 13:10
PROVIDERS: ATTEND Radiology Radiation Oncology
DX: C61 Malignant neoplasm of prostate (principal); E04.1 Nontoxic single thyroid nodule; R35.1 Nocturia; Z90.49 Acquired absence of other specified parts of digestive tract
CPT/HCPCS: 78815; A9596

== ENCOUNTER → 2023-09-30 | Outpatient (CLI) | payer MEDICARE, SELFPAY ==
[2023-09-30 21:46] LABS: Prostate Specific Antigen 0.31 ng/mL (0.000-6.500); Testosterone 26.8 ng/dL (86.98-780.10)
== END | disposition home or self-care (01) ==
LOC: LABWHC1 12:39
PROVIDERS: ATTEND Urology
DX: C61 Malignant neoplasm of prostate (principal)
CPT/HCPCS: 36415; 84153; 84403

== ENCOUNTER → 2023-11-26 | Outpatient (CLI) | payer MEDICARE, SELFPAY ==
[2023-11-26 15:02] LABS: ALT 16 U/L (10-49); AST 24 U/L (14-35); Albumin 4.5 g/dL (3.8-4.9); Albumin/Globulin Ratio 1.73 Ratio (1.60-3.17); Alkaline Phosphatase 63 U/L (41-126); Blood Urea Nitrogen 12.6 mg/dL (9.0-27.0); Carbon Dioxide 21.4 mmol/L (21.6-31.8); Chloride 104 mmol/L (96-109); Chol/HDL Ratio 3.28 Ratio; Globulin 2.6 g/dL (1.6-3.3); Glucose 106 mg/dL (70-110); LDL Cholesterol,Calculated 76.4 mg/dL (0.0-131.0); Potassium 4.6 mmol/L (3.5-5.5); Sodium 142 mmol/L (135-145); Total Bilirubin 0.3 mg/dL (0.3-1.2); Total Protein 7.1 g/dL (6.2-8.2)
== END | disposition home or self-care (01) ==
LOC: LABWHC1 10:10
PROVIDERS: ATTEND Internal Medicine Interventional Cardiology
DX: I10 Essential (primary) hypertension (principal); E78.2 Mixed hyperlipidemia
CPT/HCPCS: 36415; 80053; 80061

== ENCOUNTER → 2024-05-05 | Outpatient (CLI) | payer MEDICARE ==
[2024-05-05 15:20] LABS: Chol/HDL Ratio 3.66 Ratio; HDL Cholesterol 60.7 mg/dL (40.00-60.00); VLDL Calculation 82.2 mg/dL (5.00-40.00)
== END | disposition home or self-care (01) ==
LOC: LABWHC1 10:49
PROVIDERS: ATTEND Internal Medicine Interventional Cardiology
DX: E78.2 Mixed hyperlipidemia (principal)
CPT/HCPCS: 36415; 80061; 83721; 84450; 84460

== ENCOUNTER 2024-05-14 12:07 | Emergency (ER) | payer MEDICARE ==
[2024-05-14 12:14] LABS: Glucose,Whole Blood 104 mg/dL (70-110)
--- NOTE | 2024-05-14 12:39 | ED ---
General Adult HPI - General Chief complaint: Dizziness Stated complaint: Near syncope Time Seen by Provider: 05/14/24 12:09 Source: patient, EMS, RN notes reviewed Mode of arrival: EMS Limitations: no limitations - History of Present Illness Initial comments: Patient is a 78-year-old male present to the emergency department with concern for lightheaded episode. Patient got up and suddenly felt very lightheaded. Patient also became sweaty. Patient does sometimes get sweaty secondary to treatment for his metastatic prostate cancer. Patient does question whether or not his heart rate may have been up as he has history of A-fib. No chest pain. No dyspnea. No weakness. Symptoms have resolved. - Related Data Home Medications Medication Instructions Recorded Confirmed Meloxicam 7.5 mg PO BID 08/17/16 05/14/24 Potassium Chloride [Klor-Con 10] 10 meq PO DAILY 08/17/16 05/14/24 Torsemide 20 mg PO SUTUTHSA 08/17/16 05/14/24 Atorvastatin [Lipitor] 20 mg PO DAILY 09/04/21 05/14/24 Flecainide [Tambocor] 50 mg PO BID 09/04/21 05/14/24 Multivitamins, Thera [Multivitamin 1 tab PO DAILY 09/04/21 05/14/24 (formulary)] Vit A/Vit C/Vit E/Zinc/Copper 2 cap PO DAILY 09/04/21 05/14/24 [ICAPS SOFTGEL] ALPRAZolam [Xanax] 0.5 mg PO BID PRN 05/14/24 05/14/24 Ascorbic Acid [Vitamin C] 1,000 mg PO DAILY 05/14/24 05/14/24 Enzalutamide [Xtandi] 160 mg PO DAILY 05/14/24 05/14/24 Escitalopram [Lexapro] 20 mg PO DAILY 05/14/24 05/14/24 Latanoprost [Latanoprost 0.005%] 1 drop BOTH EYES HS 05/14/24 05/14/24 Prosteon 2 tab PO BID 05/14/24 05/14/24 Rivaroxaban [Xarelto] 20 mg PO W/SUPPER 05/14/24 05/14/24 Torsemide [Demadex] 40 mg PO MOWEFR 05/14/24 05/14/24 Previous Rx's Medication Instructions Recorded Metoprolol Tartrate [Lopressor] 25 mg PO BID #60 tab 08/18/16 lisinopriL [Zestril] 5 mg PO BID #60 tab 08/18/16 Allergies Allergy/AdvReac Type Severity Reaction Status Date / Time No Known Allergies Allergy Verified 05/14/24 12:19 Review of Systems ROS Statement: Those systems with pertinent positive or pertinent negative responses have been documented in the HPI. ROS Other: All systems not noted in ROS Statement are negative. Constitutional: Denies: fever Eyes: Denies: eye pain ENT: Denies: ear pain Respiratory: Denies: cough Cardiovascular: Denies: chest pain Endocrine: Denies: fatigue Gastrointestinal: Denies: vomiting Genitourinary: Denies: dysuria Musculoskeletal: Denies: back pain Past Medical History Past Medical History: Atrial Fibrillation, Cancer, Hyperlipidemia, Hypertension, Osteoarthritis (OA), Prostate Disorder Additional Past Medical History / Comment(s): PROSTATE CANCER History of Any Multi-Drug Resistant Organisms: None Reported Past Surgical History: Appendectomy, Bowel Resection, Heart Catheterization, Orthopedic Surgery Additional Past Surgical History / Comment(s): right knee replacement x2, left knee replacement, right hip replacement, colonoscopy with POLYP NOT CANCEROUS BUT PRECANCEROUS. Follw-up colonoscopies have been good. BILATERAL CATARACT/LENS Past Anesthesia/Blood Transfusion Reactions: Previous Problems w/ Anesthesia Additional Past Anesthesia/Blood Transfusion Reaction / Comment(s): increased blood pressure and anxiety Past Psychological History: No Psychological Hx Reported Smoking Status: Former smoker Past Alcohol Use History: Rare Past Drug Use History: None Reported - Past Family History Father Family Medical History: Cancer, Diabetes Mellitus Additional Family Medical History / Comment(s): melanoma Mother Family Medical History: Coronary Artery Disease (CAD), CVA/TIA, Diabetes Mellitus General Exam Limitations: no limitations General appearance: alert, in no apparent distress Head exam: Present: normocephalic Eye exam: Present: normal appearance, PERRL, EOMI ENT exam: Present: normal oropharynx Neck exam: Present: normal inspection Respiratory exam: Present: normal lung sounds bilaterally Cardiovascular Exam: Present: irregular rhythm, normal heart sounds Expanded Peripheral pulses: 2+: Radial (R), Radial (L), Dorsalis Pedis (R), Dorsalis Pedis (L) GI/Abdominal exam: Present: soft. Absent: tenderness, pulsatile mass Extremities exam: Present: normal inspection. Absent: calf tenderness Neurological exam: Present: alert, oriented X3, CN II-XII intact. Absent: motor sensory deficit Expanded Neurological exam: Present: protecting the airway Patient oriented to: Present: person, place, time Speech: Present: fluid speech Cranial nerves: EOM's Intact: Normal Motor strength exam: RUE: 5, LUE: 5, RLE: 5, LLE: 5 Eye Response: (4) open spontaneously Motor Response: (6) obeys commands Verbal Response: (5) oriented Psychiatric exam: Present: normal affect, normal mood Skin exam: Present: normal color Course Vital Signs 05/14/24 12:10 Temperature 98.0 F Pulse Rate 110 H Respiratory 22 Rate Blood Pressure 140/89 O2 Sat by Pulse 95 Oximetry EKG Findings - EKG Results: EKG: interpreted by ERMD (Right axis. Q wave in V1. Left bundle branch block. Nonspecific ST-T.) EKG shows: atrial fibrillation Medical Decision Making - Medical Decision Making Was pt. sent in by a medical professional or institution (, PA, PHYSICIAN ASSISTANT, urgent care, hospital, or skilled nursing...) When possible be specific @ -No Did you speak to anyone other than the patient for history (EMS, parent, family, police, friend...)? What history was obtained from this source @ - is present and helps provide significant history including past medical history and current symptoms today. Did you review nursing and triage notes (agree or disagree)? Why? @ -I reviewed and agree with nursing and triage notes Were old charts reviewed (outside hosp., previous admission, EMS record, old EKG, old radiological studies, urgent care reports/EKG's, skilled nursing records)? Report findings @ -No old charts were reviewed Differential Diagnosis (chest pain, altered mental status, abdominal pain women, abdominal pain men, vaginal bleeding, weakness, fever, dyspnea, syncope, headache, dizziness, GI bleed, back pain, seizure, CVA, palpatations, mental health, musculoskeletal)? @ -Differential Dizziness: Benign paroxysmal positional Vertigo, Meniere's disease, otitis media, acoustic neuroma, vertebrobasilar insufficiency, cerebellar stroke, encephalitis, hypovolemic, arrhythmia, coronary artery syndrome, anemia, this is not meant to be an all-inclusive list EKG interpreted by me (3pts min.). @ -As above X-rays interpreted by me (1pt min.). @ -Chest x-ray has questionable findings on the lateral film posterior which could represent early infiltrate versus atelectasis, cannot rule out bony changes CT interpreted by me (1pt min.). @ -None done U/S interpreted by me (1pt. min.). @ -None done What testing was considered but not performed or refused? (CT, X-rays, U/S, labs)? Why? @ -None What meds were considered but not given or refused? Why? @ -None Did you discuss the management of the patient with other professionals (professionals i.e. , PA, PHYSICIAN ASSISTANT, lab, RT, psych nurse, social work therapist, steel fixer, teacher, forestry technical officer, family independence case manager)? Give summary @ -No Was smoking cessation discussed for >3mins.? @ -No Was critical care preformed (if so, how long)? @ -No Were there social determinants of health that impacted care today? How? (Homelessness, low income, unemployed, alcoholism, drug addiction, transportation, low edu. Level, literacy, decrease access to med. care, penitentiary, rehab)? @ -No Was there de-escalation of care discussed even if they declined (Discuss DNR or withdrawal of care, Hospice)? DNR status @ -No What co-morbidities impacted this encounter? (DM, HTN, Smoking, COPD, CAD, Cancer, CVA, ARF, Chemo, Hep., AIDS, mental health diagnosis, sleep apnea, morbid obesity)? @ -None Was patient admitted / discharged? Hospital course, mention meds given and route, prescriptions, significant lab abnormalities, going to OR and other p ertinent info. @ -Patient presents with lightheadedness that has resolved. Patient symptom- free and reevaluation and on second reevaluation. Patient was able to get up and ambulate without any difficulty and would like to be discharged home. Patient and family updated on results and plan Undiagnosed new problem with uncertain prognosis? @ -No Drug Therapy requiring intensive monitoring for toxicity (Heparin, Nitro, Insulin, Cardizem)? @ -No Were any procedures done? @ -No Diagnosis/symptom? @ -Lightheadedness Acute, or Chronic, or Acute on Chronic? @ -Acute Uncomplicated (without systemic symptoms) or Complicated (systemic symptoms)? @ -Default Side effects of treatment? @ -No Exacerbation, Progression, or Severe Exacerbation? @ -No Poses a threat to life or bodily function? How? (Chest pain, USA, CA, pneumonia, PE, COPD, DKA, ARF, appy, cholecystitis, CVA, Diverticulitis, Homicidal, Suicidal, threat to staff... and all critical care pts) @ -No - Lab Data Result diagrams: 05/14/24 12:52 05/14/24 12:52 Lab Results 05/14/24 05/14/24 05/14/24 Range/Units 12:12 12:52 12:52 WBC 7.7 (3.8-10.6) k/uL RBC 4.81 (4.30-5.90) m/uL Hgb 14.2 (13.0-17.5) gm/dL Hct 43.7 (39.0-53.0) % MCV 90.8 (80.0-100.0) fL MCH 29.5 (25.0-35.0) pg MCHC 32.4 (31.0-37.0) g/dL RDW 14.6 (11.5-15.5) % Plt Count 212 (150-450) k/uL MPV 7.2 Neutrophils % 69 % Lymphocytes % 22 % Monocytes % 5 % Eosinophils % 2 % Basophils % 0 % Neutrophils # 5.3 (1.3-7.7) k/uL Lymphocytes # 1.7 (1.0-4.8) k/uL Monocytes # 0.4 (0-1.0) k/uL Eosinophils # 0.1 (0-0.7) k/uL Basophils # 0.0 (0-0.2) k/uL PT 10.6 (10.0-12.5) sec INR 1.0 (<1.2) APTT 22.5 (22.0-30.0) sec Sodium (137-145) mmol/L Potassium (3.5-5.1) mmol/L Chloride (98-107) mmol/L Carbon Dioxide (22-30) mmol/L Anion Gap mmol/L BUN (9-20) mg/dL Creatinine (0.66-1.25) mg/dL Est GFR (CKD-EPI)AfAm (>60 ml/min/1.73 sqM) Est GFR (CKD-EPI)NonAf (>60 ml/min/1.73 sqM) Glucose (74-99) mg/dL POC Glucose (mg/dL) 104 (70-110) mg/dL POC Glu Optimization Engineer ID Mike Barajas Calcium (8.4-10.2) mg/dL Magnesium (1.6-2.3) mg/dL Total Bilirubin (0.2-1.3) mg/dL AST (17-59) U/L ALT (4-49) U/L Alkaline Phosphatase (38-126) U/L Troponin I (0.000-0.034) ng/mL Total Protein (6.3-8.2) g/dL Albumin (3.5-5.0) g/dL 05/14/24 05/14/24 Range/Units 12:52 12:52 WBC (3.8-10.6) k/uL RBC (4.30-5.90) m/uL Hgb (13.0-17.5) gm/dL Hct (39.0-53.0) % MCV (80.0-100.0) fL MCH (25.0-35.0) pg MCHC (31.0-37.0) g/dL RDW (11.5-15.5) % Plt Count (150-450) k/uL MPV Neutrophils % % Lymphocytes % % Monocytes % % Eosinophils % % Basophils % % Neutrophils # (1.3-7.7) k/uL Lymphocytes # (1.0-4.8) k/uL Monocytes # (0-1.0) k/uL Eosinophils # (0-0.7) k/uL Basophils # (0-0.2) k/uL PT (10.0-12.5) sec INR (<1.2) APTT (22.0-30.0) sec Sodium 141 (137-145) mmol/L Potassium 4.5 (3.5-5.1) mmol/L Chloride 106 (98-107) mmol/L Carbon Dioxide 21 L (22-30) mmol/L Anion Gap 14 mmol/L BUN 21 H (9-20) mg/dL Creatinine 0.69 (0.66-1.25) mg/dL Est GFR (CKD-EPI)AfAm >90 (>60 ml/min/1.73 sqM) Est GFR (CKD-EPI)NonAf >90 (>60 ml/min/1.73 sqM) Glucose 93 (74-99) mg/dL POC Glucose (mg/dL) (70-110) mg/dL POC Glu Optimization Engineer ID Calcium 9.8 (8.4-10.2) mg/dL Magnesium 2.0 (1.6-2.3) mg/dL Total Bilirubin 0.5 (0.2-1.3) mg/dL AST 35 (17-59) U/L ALT 20 (4-49) U/L Alkaline Phosphatase 57 (38-126) U/L Troponin I <0.012 (0.000-0.034) ng/mL Total Protein 7.4 (6.3-8.2) g/dL Albumin 4.5 (3.5-5.0) g/dL Disposition Clinical Impression: Lightheadedness Disposition: HOME SELF-CARE Condition: Stable Instructions (If sedation given, give patient instructions): Dizziness (ED) Additional Instructions: Please do follow-up with your primary care physician and oncologist in the next couple of days for recheck. Please have both of them review x-ray results done today. Return for increased dizziness, chest pain or shortness of breath, weakness or confusion, worsening symptoms or any other concerns. Is patient prescribed a controlled substance at d/c from ED?: No Referrals: Jamison Almanza MD [Primary Care Provider] - 1-2 days Time of Disposition: 14:26
[2024-05-14 13:02] LABS: Basophils % (A) 0 %; Eosinophils # (A) 0.1 k/uL (0-0.7); Eosinophils % (A) 2 %; HCT 43.7 % (39.0-53.0); HGB 14.2 gm/dL (13.0-17.5); Lymphocytes # (A) 1.7 k/uL (1.0-4.8); Lymphocytes % (A) 22 %; MCH 29.5 pg (25.0-35.0); MCHC 32.4 g/dL (31.0-37.0); MCV 90.8 fL (80.0-100.0); Mean Platelet Volume 7.2; Monocytes # (A) 0.4 k/uL (0-1.0); Monocytes % (A) 5 %; Neutrophils # (A) 5.3 k/uL (1.3-7.7); Neutrophils % (A) 69 %; Platelet Count 212 k/uL (150-450); RBC 4.81 m/uL (4.30-5.90); RDW 14.6 % (11.5-15.5); WBC 7.7 k/uL (3.8-10.6)
[2024-05-14 13:14] LABS: ALT 20 U/L (4-49); AST 35 U/L (17-59); African American GFR (CKD) >90 (>60 ml/min/1.73 sqM); Albumin 4.5 g/dL (3.5-5.0); Alkaline Phosphatase 57 U/L (38-126); Anion Gap 14 mmol/L; Blood Urea Nitrogen 21 mg/dL (9-20); Calcium 9.8 mg/dL (8.4-10.2); Carbon Dioxide 21 mmol/L (22-30); Chloride 106 mmol/L (98-107); Glucose 93 mg/dL (74-99); Non-African American GFR(CKD) >90 (>60 ml/min/1.73 sqM); Potassium 4.5 mmol/L (3.5-5.1); Sodium 141 mmol/L (137-145); Total Bilirubin 0.5 mg/dL (0.2-1.3); Total Protein 7.4 g/dL (6.3-8.2)
[2024-05-14 13:19] LABS: Partial Thromboplastin Time 22.5 sec (22.0-30.0); Prothrombin Time 10.6 sec (10.0-12.5)
--- NOTE | 2024-05-14 13:27 | XR ---
EXAMINATION TYPE: XR chest 2V DATE OF EXAM: 05/14/2024 1:02 PM COMPARISON: Chest radiographs from 08/16/2016 CLINICAL INDICATION: Male, 78 years old with history of syncope; [facility] TECHNIQUE: XR chest 2V Frontal and lateral views of the chest. FINDINGS: Lungs/Pleura:Airspace opacities project over the spine not clearly seen on 08/16/2016: There is no evid ence of pleural effusion, focal consolidation, or pneumothorax. Pulmonary vascularity: Unremarkable. Heart/mediastinum: Cardiomediastinal silhouette is enlarged and stable. Musculoskeletal: No acute osseous pathology. IMPRESSION: Airspace opacities projecting over the spine possibly summation artifact. Correlate for pneumonia. [facility], , 05/14/2024 1:25 PM
[2024-05-14 14:26] VITALS: BP 131/90; PULSE 101; RESP 20
[2024-05-14 14:39] VITALS: TEMP 98.1
== END 2024-05-14 14:50 | disposition home or self-care (01) ==
LOC: EC 12:07
DX: R42 Dizziness and giddiness (principal); I48.91 Unspecified atrial fibrillation; I44.7 Left bundle-branch block, unspecified; Z87.891 Personal history of nicotine dependence; Z79.899 Other long term (current) drug therapy
CPT/HCPCS: 36415; 71046; 80053; 83735; 84484; 85025; 85610; 85730; 93005; 99285

== ENCOUNTER → 2024-06-18 | Outpatient (CLI) | payer MEDICARE ==
[2024-06-18 15:57] LABS: Basophils # (A) 0.05 X 10*3/uL (0.00-0.10); Basophils % (A) 0.7 %; Eosinophils # (A) 0.17 X 10*3/uL (0.04-0.35); Eosinophils % (A) 2.4 %; HCT 45.6 % (39.6-50.0); HGB 14.1 g/dL (13.0-17.0); Lymphocytes # (A) 3.05 X 10*3/uL (0.90-5.00); Lymphocytes % (A) 43.6 %; MCH 28.3 pg (27.0-32.0); MCHC 30.9 g/dL (32.0-37.0); MCV 91.4 FL (80.0-97.0); Mean Platelet Volume 10.3 FL (9.5-12.2); Monocytes # (A) 0.81 X 10*3/uL (0.20-1.00); Monocytes % (A) 11.6 %; NRBC Per 100 WBC 0 X 10*3/uL (0.00-0.01); Neutrophils # (A) 2.91 X 10*3/uL (1.80-7.70); Neutrophils % (A) 41.6 %; Platelet Count 217 X 10*3/uL (140-440); RBC 4.99 X 10*6/uL (4.40-5.60); RDW 14.7 % (11.5-14.5)
[2024-06-18 16:10] LABS: ALT 9 U/L (10-49); AST 22 U/L (14-35); Albumin 4.2 g/dL (3.8-4.9); Albumin/Globulin Ratio 1.45 Ratio (1.60-3.17); Alkaline Phosphatase 66 U/L (41-126); BUN/Creat Ratio 24.67 Ratio (12.00-20.00); Blood Urea Nitrogen 14.8 mg/dL (9.0-27.0); Calcium 9.9 mg/dL (8.7-10.3); Carbon Dioxide 21.4 mmol/L (21.6-31.8); Chloride 102 mmol/L (96-109); Chol/HDL Ratio 3.53 Ratio; Globulin 2.9 g/dL (1.6-3.3); Glucose 101 mg/dL (70-110); LDL Cholesterol,Calculated 86.8 mg/dL (0.0-131.0); Potassium 4.6 mmol/L (3.5-5.5); Sodium 138 mmol/L (135-145); Total Bilirubin 0.3 mg/dL (0.3-1.2); Total Protein 7.1 g/dL (6.2-8.2)
== END | disposition home or self-care (01) ==
LOC: LABWHC1 10:50
PROVIDERS: ATTEND Family Medicine
DX: I10 Essential (primary) hypertension (principal); E78.2 Mixed hyperlipidemia
CPT/HCPCS: 36415; 80053; 80061; 83036; 85025

== ENCOUNTER → 2024-07-13 | Outpatient (CLI) | payer MEDICARE ==
[2024-07-13 15:19] LABS: HCT 46.9 % (39.6-50.0); HGB 14.8 g/dL (13.0-17.0); MCH 28.9 pg (27.0-32.0); MCHC 31.6 g/dL (32.0-37.0); MCV 91.6 FL (80.0-97.0); NRBC Per 100 WBC 0 X 10*3/uL (0.00-0.01); Platelet Count 213 X 10*3/uL (140-440); RBC 5.12 X 10*6/uL (4.40-5.60); RDW 14.6 % (11.5-14.5); WBC 9.18 X 10*3/uL (4.50-10.00)
[2024-07-13 15:45] LABS: Carbon Dioxide 21.3 mmol/L (21.6-31.8); Chloride 105 mmol/L (96-109); Potassium 4.9 mmol/L (3.5-5.5); Sodium 142 mmol/L (135-145)
== END | disposition home or self-care (01) ==
LOC: LABPAT 10:40
PROVIDERS: ATTEND Internal Medicine Clinical Cardiac Electrophysiology
DX: Z01.812 Encounter for preprocedural laboratory examination (principal); I25.10 Atherosclerotic heart disease of native coronary artery without angina pectoris; I48.11 Longstanding persistent atrial fibrillation; R55 Syncope and collapse
CPT/HCPCS: 80051; 82565; 84520; 85027